=== PATIENT | female | born 1950 | race Caucasian/White ===

== ENCOUNTER 2022-06-17 14:08 | Inpatient (IN) | payer MEDICARE, OTHER, SELFPAY ==
[2022-06-17] VITALS (14 sets, daily range): BP systolic 107–149; BP diastolic 58–80; PULSE 65–77; RESP 12–22; TEMP 36.1–37.4; O2SAT 91–98; BMI 27.3; BMI 28.5
--- NOTE | 2022-06-17 14:25 | CRLHL7_ITS ---
For Patients: As a result of the Century Cures Act, medical imaging exams and procedure reports are released immediately into your electronic medical record. You may view this report before your referring provider. If you have questions, please contact your health care provider. INDICATION : Fall 8 feet from ladder. Chest trauma. TECHNIQUE : CT Scan of the chest abdomen pelvis. 66 cc Isovue IV COMPARISON : No comparison FINDINGS: Chest: Fractures of the right 7th 8th and 9th ribs. The fractures are present in more than 1 location in the involved ribs with anterior and more lateral components. Some pleural thickening and hematoma is present. Linear gas within the chest wall small volume as well as a small amount of linear gas right lower quadrant abdominal wall. Small amount of air anterior to the extreme inferior right middle lobe could be extrapleural air or a tiny pneumothorax. Atelectasis in both lower lobes. No suspicious adenopathy. The left lower lobe shows a localized emphysematous lesion which is subpleural. No adenopathy. Some minimally displaced linear cortical fractures of the posterior cortex of the sternum are present with some retrosternal thickening and hematoma. The aorta appears intact. No mediastinal hematoma or pericardial effusion. Abdomen: No liver laceration or mass. Tiny low dense lesion is present near the gallbladder. This is difficult to further characterize. No calcified gallstones. Spleen is intact. Adrenal glands and pancreas unremarkable. Kidneys are intact. Tiny low dense lesion probably a small cortical cyst medial right kidney image 137. No perinephric hematoma. GI tract is unremarkable. Small ventral hernia containing fat no bowel loops. No suspicious lymph node enlargement. Pelvis: No free fluid. The urinary bladder is unremarkable. Miscellaneous skeletal: Please see the acute skeletal abnormalities listed above. Chronic spondylolysis and spondylolisthesis L5-S1. Grade 2 anterolisthesis with bilateral pars defects. No vertebral body compressions. IMPRESSION: 1. Rib fractures with small localized segment of a flail chest (involving rib fractures of the same rib more than 1 site) involving the 7th 8th and 9th ribs. No gross chest wall deformity. 2. Small amount of posttraumatic chest wall hematoma and some linear gas right chest wall and abdominal wall. 3. Nondisplaced small cortical fractures of the posterior sternal body with minimal posterior retrosternal hematoma. No large mediastinal hematoma. 4. No signs of definite aortic injury. 5. No signs of definite liver laceration or other solid organ injury in the abdomen. 6. No other suspicious radiographic abnormalities. 7. The results were also communicated verbally to the emergency department physician at 3:50 p.m. Please note that all CT scans at this facility use dose modulation, iterative reconstruction, and/or weight-based dosing when appropriate to reduce radiation dose to as low as reasonably achievable. Dictated by Addy Mills MD @ 06/17/2022 3:59:03 PM (Electronically Signed)
--- NOTE | 2022-06-17 14:26 | ED_ITS ---
HPI - Fall General Chief Complaint: Fall/Minor Trauma Stated Complaint: Fell off ladder onto chest 8 ft Time Seen by Provider: 06/17/22 14:14 History of Present Illness HPI Narrative: This 71-year-old female comes in for evaluation of injuries from a fall that occurred just prior to arrival. She was up on a ladder when the ladder fell from under her. She fell reportedly about 8 ft and landed on the ladder. She has bruising on her left anterior lower ribs. She has significant pain at this location and radiating through to the right side of her back. She does not report any other injury. She did not hit her head or have loss of consciousness. After about 10 minutes she states she was able to get up and ambulate to the vehicle to come here. She is not on blood thinners. Related Data Allergies Allergy/AdvReac Type Severity Reaction Status Date / Time Opioids - Morphine Analogues AdvReac Severe Vomiting Verified 06/17/22 15:01 Review of Systems Status of ROS: Reports: 10 or more systems reviewed and unremarkable except as noted in History and below Narrative: Constitutional: No fevers, no weight gain or loss. Eyes: No discharge. No vision changes. HENT: No congestion, no sore throat, no ear pain. Cardiovascular: No palpitations. Respiratory: No wheezes, no cough. Pain worse when taking moderate her deeper breaths. Gastrointestinal: No vomiting, no diarrhea. Pain in the right upper quadrant. Genitourinary: No dysuria, no hematuria. Musculoskeletal: Normal range of motion. Skin: No rashes, no pruritis. Neurological: No dizziness, weakness, sensory change, speech change. Endo/Heme/Allergies: No bruising or bleeding. No polydipsia. Pysch: no suicidality, no anxiety, no insomnia. All other systems reviewed and are negative. PFSH PFS Social History Smoking Status: Never smoker Do you use any of these nicotine containing products: None How often do you have a drink containing alcohol: 2-4 times a month AUDIT-C Alcohol total score: 2 Non-prescribed substance use: denies use Exam Narrative: Exam Narrative: Primary Survey: Vital Signs are within normal limits. Airway: Open. Breathing: Easy but painful. Circulation: no obvious bleeding; normal capillary refill. Disability: GCS is 15. Normal pupillary response and motor movements. Secondary Survey: Exposure: Head: Normocephalic. No sign of injury. Neck: No midline tenderness. ROM intact. Chest: Right anterior lower chest has erythema and bruising with tenderness. Abdomen: Tenderness in the right upper quadrant. No rebound tenderness. Normal bowel sounds. Pelvis/Genitals: No tenderness to A/P and lateral stress. Extremities: Atraumatic. Back: No midline tenderness. Primary and Secondary surveys are completed. The patient's GCS is 15. Const: Vital Signs, click to edit/add: Vital Signs - 24 hr 06/17/22 14:18 06/17/22 15:17 06/17/22 15:32 Temperature 97.3 F L Pulse Rate 77 72 Pulse Rate [Pulse Oximeter] 67 Respiratory Rate 22 Blood Pressure 149/80 H Blood Pressure [Ri ght Upper Arm] 146/66 H Pulse Oximetry 95 93 97 Oxygen Delivery Me thod Room Air 06/17/22 15:34 Temperature Pulse Rate 70 Pulse Rate [Pulse Oximeter] Respiratory Rate Blood Pressure Blood Pressure [Ri ght Upper Arm] Pulse Oximetry 98 Oxygen Delivery Me thod Course Vital Signs Vital signs: Initial Vital Signs Temperature 97.3 F L 06/17/22 14:18 Temperature Source Temporal Artery Scan 06/17/22 14:18 Pulse Rate 67 06/17/22 14:18 Respiratory Rate 22 06/17/22 14:18 Blood Pressure 146/66 H 06/17/22 14:18 Blood Pressure Mean 92 06/17/22 14:18 Blood Pressure Position Left Lateral 06/17/22 14:18 Pulse Oximetry 95 06/17/22 14:18 Oxygen Delivery Method 06/17/22 14:18 Vital Signs Temperature 97.3 F L 06/17/22 14:18 Pulse Rate 67 06/17/22 14:18 Respiratory Rate 22 06/17/22 14:18 Blood Pressure 146/66 H 06/17/22 14:18 Pulse Oximetry 95 06/17/22 14:18 Oxygen Delivery Method 06/17/22 14:18 Temperature 97.3 F L 06/17/22 14:18 Pulse Rate 70 06/17/22 15:34 Respiratory Rate 22 06/17/22 14:18 Blood Pressure 149/80 H 06/17/22 15:32 Pulse Oximetry 98 06/17/22 15:34 Oxygen Delivery Method 06/17/22 14:18 MDM - Fall MDM Narrative Medical decision making narrative: This patient comes in in significant distress from a fall and associated rib injury. Yet she is maintaining sufficient oximetry and vital signs. She does not show any signs of shortness of breath. Given the mechanism of the fall she had an IV placed and CT scan was done with contrast to evaluate chest, abdomen, and pelvis. Her neck and head were nontender and not involved in this injury. I did not see the need to scan had a neck at this time. She was able to get up and ambulate after this fall but has significant discomfort in her right anterior lower ribs. CT imaging does show evidence of fractures of the 7th, 8th, and 9th ribs. There are more than 1 fractures on these particular ribs. There is some small amount of blood and air associated with this but no obvious pneumothorax. Additionally there is suspicion of a sternal fracture. She has some small amount of blood beneath the sternum also. The patient does report some pain in this area also. She received IV doses of Dilaudid and Zofran twice for pain relief. She tolerated this well but did have some significant nausea symptoms that were sufficiently treated with Zofran. I spoke with the hospitalist lithography contact worker, Dr. Muhammad, who agrees to her admission. Lab Data Labs: Lab Results 06/17/22 06/17/22 06/17/22 Range/Units 14:30 14:30 14:53 WBC 9.18 (4.50-11.00) K/uL RBC 4.56 (4.00-5.20) m/uL Hgb 11.7 L (12.0-16.0) gm/dL Hct 36.9 (33.0-51.0) % MCV 81 (80-100) fL MCH 26 (26-34) pg MCHC 32 (32-36) gm/dL RDW Coeff of Keira 17.5 H (11.5-15.5) % Plt Count 298 (140-440) K/uL Neut % (Auto) 56.3 (42.0-72.0) % Lymph % (Auto) 31.7 (20-44) % [place] % (Auto) 8.4 (0.0-11.0) % Eos % (Auto) 1.7 (0.0-7.0) % Baso % (Auto) 0.3 (0.0-3.0) % Neut # (Auto) 5.16 (1.7-7.0) K/uL Lymph # (Auto) 2.91 H (0.90-2.90) K/uL [place] # (Auto) 0.80 (0.00-0.90) K/UL Eos # (Auto) 0.16 (0.00-0.50) K/uL Baso # (Auto) 0.03 (0.00-0.30) K/uL Abs Immat Gran (auto) 0.15 (0.00-0.30) K/uL Sodium 139 (135-149) mmol/L Potassium 3.9 (3.6-5.1) mmol/L Chloride 102 (96-114) mmol/L Carbon Dioxide 31 (20-32) mmol/L BUN 12 (7-30) mg/dL Creatinine 0.9 (0.5-1.5) mg/dL Estimated Creat Clear 38.14 Estimated GFR 69 ml/min Glucose 118 H (60-115) mg/dL Calcium 9.0 (8.4-10.6) mg/dL POC Creatinine 0.9 (0.6-1.3) mg/dl Imaging Data CT Chest Abd Pelvis: Radiologist's impression: 1. Rib fractures with small localized segment of a flail chest (involving rib fractures of the same rib more than 1 site) involving the 7th 8th and 9th ribs. No gross chest wall deformity. 2. Small amount of posttraumatic chest wall hematoma and some linear gas right chest wall and abdominal wall. 3. Nondisplaced small cortical fractures of the posterior sternal body with minimal posterior retrosternal hematoma. No large mediastinal hematoma. 4. No signs of definite aortic injury. 5. No signs of definite liver laceration or other solid organ injury in the abdomen. 6. No other suspicious radiographic abnormalities. Discharge Plan Discharge Clinical Impression: Multiple fractures of ribs, Sternal fracture Patient Disposition: Admitted As Inpatient Condition: Unchanged Follow Up/Referrals: Arleen Joya DO [Primary Care Provider] -
[2022-06-17] MEDS: ONDANSETRON 2 MG/ML inj 4 MG IVP ×2 (14:32→16:01)
[2022-06-17] MEDS: HYDROmorphone 0.5 mg/0.5 ml inj IVP ×2 (14:33→15:46)
[2022-06-17 14:44] LABS: Basophils Absolute Auto 0.03 K/uL (0.00-0.30); Basophils Percent Auto 0.3 % (0.0-3.0); Eosinophils Absolute Auto 0.16 K/uL (0.00-0.50); Eosinophils Percent Auto 1.7 % (0.0-7.0); Hematocrit 36.9 % (33.0-51.0); Hemoglobin* 11.7 gm/dL (12.0-16.0); Immature Granulocytes Abs Auto 0.15 K/uL (0.00-0.30); Lymphocytes Absolute Auto 2.91 K/uL (0.90-2.90); Lymphocytes Percent Auto 31.7 % (20-44); Mean Corpuscular HGB Conc 32 gm/dL (32-36); Mean Corpuscular Hemoglobin 26 pg (26-34); Mean Corpuscular Volume 81 fL (80-100); Monocytes Percent Auto 8.4 % (0.0-11.0); Neutrophils Absolute Auto 5.16 K/uL (1.7-7.0); Neutrophils Percent Auto 56.3 % (42.0-72.0); Platelet Count* 298 K/uL (140-440); RDW Coefficient of Variation % 17.5 % (11.5-15.5); Red Blood Count 4.56 m/uL (4.00-5.20); White Blood Count* 9.18 K/uL (4.50-11.00)
[2022-06-17 14:51] LABS: Slide Review Reflex No
[2022-06-17 14:57] LABS: Chloride* 102 mmol/L (96-114); Potassium* 3.9 mmol/L (3.6-5.1); Sodium* 139 mmol/L (135-149)
[2022-06-17 15:00] LABS: Blood Urea Nitrogen* 12 mg/dL (7-30); Carbon Dioxide* 31 mmol/L (20-32); Creatinine* 0.9 mg/dL (0.5-1.5); Est. Creatinine Clearance* 38.14; Estimated Glomerular Filt Rate 69 ml/min; Glucose* 118 mg/dL (60-115)
[2022-06-17 15:03] LABS: Creatinine, Point-of-Care* 0.9 mg/dl (0.6-1.3)
--- NOTE | 2022-06-17 16:20 | P.IMHP_ITS ---
Hospitalist- H&P: HPI History of Present Illness Date Seen: 06/17/22 Chief complaint: Fell off ladder onto chest 8 ft Narrative: ADMISSION HISTORY AND PHYSICAL - HOSPITALIST Chief Complaint: I fell hurting my right chest HPI: 71 y/o with no significant medical history presents after a fall. She was on a ladder washing the side of her house in preparation for it to be painted. Her was holding the ladder until he wasn't -- the ladder slipped to the right and she came crashing down on top of ladder onto cement. The fall was estimated at 6-8 feet. She was able to yell out and slowly stand up. She reports no head injury or loss of consciousness. The fall was witnessed by her . Neighbors came over and assisted. She was able to ambulate to her car and come in by POV. She is complaining of right chest wall pain. No headache, bleeding from the mouth or ears, no neck pain. No leg pain. No arm pain. In the ED a trauma activation was initiated. Chest abdomen pelvic CT revealed several rib fractures on the right with suspicion of a minor pneuo/hemothorax. She also has a cracked sternum. She was given IV opioids and anti emetics. Her labs were notable for a drop in her hemoglobin from baseline. 13.4 last fall, 11.7 tonight. LFTs were still pending at admission. She was not hypoxic. She was alert and coherent. He was feeling nauseated and having emesis from her opioids. I did ask for an EKG, C-spine evaluation by CT, LFTs, 3D recon of her thoracic and lumbar spine. This was in consultation with Dr. Gilbert, general surgeon, by phone. EKG was unremarkable. PAST MEDICAL HISTORY: Obstructive sleep apnea Basal cell Hypertension Hyperparathyroidism Osteopenia Cat allergy MEDICATIONS: All OTC-biotin calcium, fish, Flonase, multivitamin, vitamin-E ALLERGIES: Environmental: Animal dander, count elope, dust mite, mold, peanuts, pollen Codeine Hydrocodone Lisinopril Morphine The medication allergies sound more like intolerances SURGICAL HISTORY: Uterine ablation Eye surgery Hand ligament reconstruction Hysterectomy with oophorectomy Parathyroidectomy FAMILY HISTORY: Reviewed in EMR HABITS: Lifetime nonsmoker. No vaping history Wine or beer occasionally SOCIAL HISTORY: , lives with her , Prem, who is 10 years older than she is Dr. Joya - is her PCP INVESTIGATIONS: LABS/MICRO/ECG/IMAGING CBC reflects a normal white blood cell count of 9.18, hemoglobin 11.7, platelets 298 Last hemoglobin was noted to be 13.4 in August of 2021 BMP is unremarkable. Normal renal function. Glucose 118. Chest abdomen pelvic CT 1. Rib fractures with small localized segment of a flail chest (involving rib fractures of the same rib more than 1 site) involving the 7th 8th and 9th ribs. No gross chest wall deformity. 2. Small amount of posttraumatic chest wall hematoma and some linear gas right chest wall and abdominal wall. 3. Nondisplaced small cortical fractures of the posterior sternal body with minimal posterior retrosternal hematoma. No large mediastinal hematoma. 4. No signs of definite aortic injury. 5. No signs of definite liver laceration or other solid organ injury in the abdomen. 6. No other suspicious radiographic abnormalities. Afebrile Blood pressure 132/69 Pulse rate 60s to 70s Respiratory rate 22 Pulse ox 92-94% on room air 63.5 kilos REVIEW OF SYSTEMS: 12-point ROS completed with patient and negative unless otherwise stated in HPI or below. PHYSICAL EXAM: CODE STATUS: FULL CODE CONSTITUTIONAL: Lying on her left side, emesis bag being held secondary to nausea vomiting related to opioid therapy, cooperative. VITAL SIGNS: see record. HEENT: Normocephalic, atraumatic. PERRL, EOMI, conjunctivae pink, no scleral icterus. Ears and nose externally normal. Pharynx normal. NECK: No JVD. No carotid bruit, no thyromegaly, no adenopathy. CHEST: Abrasion noted along the lateral right chest wall. No abnormal chest movements with inspiration or expiration. No wheezing. HEART: No definitive murmur MUSCULOSKELETAL: Tender across the lateral right chest wall, as expected. I specifically palpated her orbits, her mandible, her skull, C-spine. I inspected her right ear and behind her right ear. I examined her right arm and alley worker strength which was normal. I asked her to lift her right leg and bend her knee to chest which she was generally able to follow my commands. This significant pain in her right chest was limiting. NEURO: Cranial nerves intact. Grossly intact. No asymmetric findings. SKIN: Abrasions on the did right lateral chest wall and right groin PSYCHIATRIC: Euthymic. ADMIT DVT: SCDs GI: PO intake Time spent: 70 minutes examining patient, conferring with family and patient, care staff, developing care plan [facility] Medical History (Updated 06/17/22 @ 18:13 by Latasha Muhammad MD) Basal cell carcinoma Hyperparathyroidism Hypertension JOSE GUADALUPE (obstructive sleep apnea) Surgical History (Updated 06/17/22 @ 18:13 by Latasha Muhammad MD) H/O eye surgery H/O hand surgery History of endometrial ablation History of parathyroidectomy S/P DAVID-BSO (total abdominal hysterectomy and bilateral salpingo-oophorectomy) Social History Smoking Status: Never smoker Do you use any of these nicotine containing products: None How often do you have a drink containing alcohol: 2-4 times a month AUDIT-C Alcohol total score: 2 Non-prescribed substance use: denies use Meds Home Medications and Allergies Allergies Allergy/AdvReac Type Severity Reaction Status Date / Time Opioids - Morphine Analogues AdvReac Severe Vomiting Verified 06/17/22 15:01 Exam Const: Vital Signs, click to edit/add: Vital Signs - 24 hr 06/17/22 14:18 06/17/22 15:17 06/17/22 15:32 Temperature 97.3 F L Pulse Rate 77 72 Pulse Rate [Pulse Oximeter] 67 Respiratory Rate 22 Blood Pressure 149/80 H Blood Pressure [Ri ght Upper Arm] 146/66 H Pulse Oximetry 95 93 97 Oxygen Delivery Me thod Room Air 06/17/22 15:34 Temperature Pulse Rate 70 Pulse Rate [Pulse Oximeter] Respiratory Rate Blood Pressure Blood Pressure [Ri ght Upper Arm] Pulse Oximetry 98 Oxygen Delivery Me thod Hospitalist - H&P: Result Labs Labs: Short CBC 06/17/22 Range/Units 14:30 WBC 9.18 (4.50-11.00) K/uL Hgb 11.7 L (12.0-16.0) gm/dL Hct 36.9 (33.0-51.0) % Plt Count 298 (140-440) K/uL BMP 06/17/22 14:30 Sodium 139 Potassium 3.9 Chloride 102 Carbon Dioxide 31 BUN 12 Creatinine 0.9 Glucose 118 H Calcium 9.0 Assessment and Plan Assessment and plan (1) Fall from ladder: Status: Acute Assessment and Plan: Admit to CCU level care for at least the 1st 12-24 hours. This is blunt chest trauma with concern of extension of her bleeding/pneumo. Monitor on telemetry and continuous pulse oximetry. The impact and significance of her trauma is not to be under stated. She has a small flail segment of the chest and a drop in her hemoglobin with small amounts of pneumothorax and hemothorax. This obligates for observation at this point without intervention. will check hemoglobin and CXR later this evening. EKG was reassuring. Telemetry will be monitored for cardiac arrhythmia secondary to blunt chest trauma. UA for hematuria screen. Control her pain. RT to assist with pulmonary hygiene. (2) Flail chest, initial encounter for closed fracture: Status: Acute Assessment and Plan: As above (3) Multiple fractures of ribs: Status: Acute Assessment and Plan: As above, follow-up chest x-ray in the morning (4) Sternal fracture: Status: Acute Assessment and Plan: As above Plan I discussed this case with our general surgeon. He went to the ED and discuss this case with both ER docs. We will admit to our CCU with close observation. Her injuries at this point do not require intervention other than pain control and pulmonary hygiene. However things may change in the next 12-24 hours and may necessitate transfer to trauma center. Morning labs ordered.
--- NOTE | 2022-06-17 16:50 | CRLHL7_ITS ---
For Patients: As a result of the Century Cures Act, medical imaging exams and procedure reports are released immediately into your electronic medical record. You may view this report before your referring provider. If you have questions, please contact your health care provider. Indication: Fall, rib and sternal fractures Technique: Contiguous axial images from the skull base through the superior mediastinum were obtained with coronal and sagittal reformations. No IV contrast was administered. Comparison: None available Findings: No definite acute appearing cervical spine fracture. No listhesis. Degenerative changes in the mid cervical spine. On soft tissue windows, there is no definite epidural hematoma. Impression: No CT evidence of cervical spine fracture or static subluxation. Please note that all CT scans at this facility use dose modulation, iterative reconstruction, and/or weight-based dosing when appropriate to reduce radiation dose to as low as reasonably achievable. Dictated by Kelby Marshall MD @ 06/17/2022 5:56:25 PM (Electronically Signed)
[2022-06-17] MEDS: LORazepam 2 MG/ML inj 0.25 MG IVP (17:09)
--- NOTE | 2022-06-17 17:44 | CRLHL7_ITS ---
For Patients: As a result of the Century Cures Act, medical imaging exams and procedure reports are released immediately into your electronic medical record. You may view this report before your referring provider. If you have questions, please contact your health care provider. INDICATION: Fall. COMPARISON: None. TECHNIQUE: Trauma CT thoracic spine reformats. FINDINGS: Minimal anterolisthesis of T2 on T3 likely secondary to adjacent facet arthropathy. Otherwise normal vertebral body alignment. The facet joints articulate normally. The vertebral body heights are preserved. The posterior elements appear intact. There is mild multilevel disc space height loss and anterior endplate osteophytosis. Partially visualized rib and sternal fractures better evaluated on trauma CT. IMPRESSION: No acute osseous abnormality of the thoracic spine. Please note that all CT scans at this facility use dose modulation, iterative reconstruction, and/or weight-based dosing when appropriate to reduce radiation dose to as low as reasonably achievable. Dictated by Israel Finch MD @ 06/17/2022 6:25:49 PM (Electronically Signed)
--- NOTE | 2022-06-17 17:44 | CRLHL7_ITS ---
For Patients: As a result of the Century Cures Act, medical imaging exams and procedure reports are released immediately into your electronic medical record. You may view this report before your referring provider. If you have questions, please contact your health care provider. On S1. INDICATION: Fall. COMPARISON: None. TECHNIQUE: Trauma bone reformats of the lumbar spine. FINDINGS: Moderate anterolisthesis of L5 on S1 secondary to chronic bilateral pars defects. No evidence of acute vertebral body malalignment. The facet joints otherwise articulate normally. The vertebral body heights are preserved. There is multilevel disc space height loss, most severe at L4-L5 and L5-S1. The posterior elements appear intact. IMPRESSION: No acute osseous abnormality. Chronic bilateral L5 pars defects with associated grade 2 anterolisthesis of L5 on S1. Please note that all CT scans at this facility use dose modulation, iterative reconstruction, and/or weight-based dosing when appropriate to reduce radiation dose to as low as reasonably achievable. Dictated by Israel Finch MD @ 06/17/2022 6:21:15 PM (Electronically Signed)
[2022-06-17 17:55] LABS: SARS PCR* Negative SARS-CoV-2 (Negative)
[2022-06-17 18:02] LABS: Albumin* 4.3 g/dL (3.3-5.0)
[2022-06-17 18:05] LABS: Aspartate Amino Transferase* 82 U/L (12-35); Bilirubin Direct* 0.2 mg/dL (0.0-0.5); Bilirubin Total* 0.5 mg/dL (0.1-1.5); Total Protein* 7.5 g/dL (6.0-8.3)
[2022-06-17 18:06] LABS: Alanine Aminotransferase* 48 U/L (4-35); Alkaline Phosphatase* 108 U/L (40-150)
[2022-06-17] MEDS: KETOROLAC 30 MG/ML inj IVP (18:52)
[2022-06-17] MEDS: PROCHLORPERAZINE 5 MG/ML VIAL IV (19:08)
[2022-06-17] MEDS: GABAPENTIN 300 MG CAPSULE PO (20:41)
[2022-06-17] MEDS: ACETAMINOPHEN 325 MG TABLET PO (20:41)
[2022-06-17] MEDS: SODIUM CHLORIDE 0.9 % (FLUSH) 10 ML SYRINGE 5 ML IVF (20:42)
[2022-06-17 21:56] LABS: Hemoglobin* 10.8 gm/dL (12.0-16.0)
[2022-06-17] MEDS: 0.9 % SODIUM CHLORIDE 500 ML 500 ML IV (21:57)
[2022-06-17] MEDS: 0.9 % SODIUM CHLORIDE 1000 ml 1,000 ML 75 ML IV (21:57)
--- NOTE | 2022-06-17 22:00 | CRLHL7_ITS ---
For Patients: As a result of the Century Cures Act, medical imaging exams and procedure reports are released immediately into your electronic medical record. You may view this report before your referring provider. If you have questions, please contact your health care provider. Indication: Follow up trauma Comparison: CT chest, abdomen and pelvis dated June 17, 2022 Technique: Single AP view chest Findings: There is hyperinflation and chronic interstitial change. Previously seen small pneumothoraces are not well appreciated with minimal left basilar lucency appreciated. No evidence of significant air accumulation or midline shift. The cardiomediastinal silhouette is within normal limits. Previously seen rib fractures on the right are not well appreciated. Impression: Previously seen small pneumothoraces on comparison CT are not well appreciated on current exam with minimal left basilar lucency. Otherwise, mild pulmonary edema without evidence of midline shift. Dictated by Tima Charles MD @ 06/18/2022 6:01:41 AM (Electronically Signed)
[2022-06-17 22:37] LABS: C Reactive Protein* < 0.5 mg/dL (0.5-1.0)
[2022-06-17] MEDS: PANTOPRAZOLE SODIUM 40 MG INJ IVP (22:48)
[2022-06-17] MEDS: hydrOXYzine pamoate 25 MG CAPSULE PO (22:48)
[2022-06-18] VITALS: BP 129/67; PULSE 71; RESP 12; TEMP 36.8; O2SAT 96
[2022-06-18 00:55] VITALS: PULSE 60
[2022-06-18] MEDS: ACETAMINOPHEN 325 MG TABLET PO ×3 (02:46→15:33)
[2022-06-18 03:05] VITALS: BP 135/69; PULSE 66; RESP 12; TEMP 36.7; O2SAT 92
--- NOTE | 2022-06-18 04:30 | PC.NURSE ---
Addendum entered by Bryce Barker RN 06/18/22 06:13: Placed back on O2 at 0.5LNC for O2 sats occ dipping to 89%. Last rosa m PCXR resulted. Addendum entered by Bryce Barker RN 06/18/22 05:47: Up to BSC this AM tolerated fairly well. Voided about 200mls. Bladder scanned for 393mls PVR. Original Note: Temp 99.5 gave Tylenol and used IS to 750 down to 98.2 at 0300. O2 sats borderline at 1930 applied 1LNC tapered to 0.5LNC and then to home CPAP at 0300 sats 92%. Lungs diminished and seems to have symmetrical chest rise w/inspiration. Pt was having some moderate nausea, had pt do sips/ships until resolved somewhat and then gave Tylenol and Neurontin. Vistaril given about 2300 and pt slept well after that. Ice pack to lower right chest w/small light bruise. Pain is mostly when moving and was resolved while at rest by 0300 and Tylenol given. Had pt use a pillow to splint when moving. Tele NSR w/occ early beats and some isolated runs of sinus tach noted after the analysis was run and 1 example posted to chart. Reported last void at 1330 or so and then when pt positioned for PCXR and just prior to 2200 blood draw bladder scan done for about 258mls. Dr. Muhammad gave order for NS bolus and IVF which was started after the 2200 hemoglobin draw. Was sleeping really hard at 0300 and still did not need to void. Reports hands have chronic tingling.
[2022-06-18 06:58] LABS: HCO3 VBG 28 mmol/L (21-28); PCO2 VBG 52 mmHG (40-50); PO2 VBG 25.3 mmHG (25-47); pH VBG 7.344 (7.32-7.43)
[2022-06-18 07:00] VITALS: PULSE 57
[2022-06-18 07:00] LABS: Lactate* 0.9 mmol/L (0.5-1.9)
--- NOTE | 2022-06-18 07:00 | CRLHL7_ITS ---
For Patients: As a result of the Century Cures Act, medical imaging exams and procedure reports are released immediately into your electronic medical record. You may view this report before your referring provider. If you have questions, please contact your health care provider. Indication: Post trauma Comparison: Single view chest June 17, 2022 and chest abdomen and pelvis CT June 17, 2022 Technique: Single AP view chest Findings: There is hyperinflation and chronic interstitial change. There is persistent bibasilar atelectasis and parenchymal scar. Previously noted pneumothoraces on comparison CT chest abdomen and pelvis are not well appreciated without significant accumulation. The cardiac silhouette is stable. Previously seen right-sided rib deformities are again noted, better appreciated on CT. Impression: Persistent basilar atelectasis and mild interstitial prominence. No evidence of significant accumulation of previously seen bilateral trace pneumothoraces. Dictated by Tima Charles MD @ 06/18/2022 7:17:25 AM (Electronically Signed)
[2022-06-18 07:04] LABS: Hematocrit 31.2 % (33.0-51.0); Hemoglobin* 9.8 gm/dL (12.0-16.0); Mean Corpuscular HGB Conc 31 gm/dL (32-36); Mean Corpuscular Hemoglobin 26 pg (26-34); Mean Corpuscular Volume 82 fL (80-100); Platelet Count* 204 K/uL (140-440); Red Blood Count 3.82 m/uL (4.00-5.20)
[2022-06-18 07:19] LABS: Slide Review Reflex No
[2022-06-18 07:33] LABS: Albumin* 3.4 g/dL (3.3-5.0); Chloride* 104 mmol/L (96-114)
[2022-06-18 07:34] LABS: Potassium* 3.9 mmol/L (3.6-5.1); Sodium* 137 mmol/L (135-149)
[2022-06-18 07:36] LABS: Bilirubin Total* 0.7 mg/dL (0.1-1.5); Creatinine* 0.9 mg/dL (0.5-1.5); Est. Creatinine Clearance* 38.14; Estimated Glomerular Filt Rate 69 ml/min
[2022-06-18 07:37] LABS: Alanine Aminotransferase* 37 U/L (4-35); Alkaline Phosphatase* 79 U/L (40-150); Aspartate Amino Transferase* 59 U/L (12-35); Blood Urea Nitrogen* 13 mg/dL (7-30); Calcium* 7.9 mg/dL (8.4-10.6); Carbon Dioxide* 29 mmol/L (20-32); Glucose* 102 mg/dL (60-115); Total Protein* 6.1 g/dL (6.0-8.3)
[2022-06-18 07:40] LABS: C Reactive Protein* 2.2 mg/dL (0.5-1.0)
--- NOTE | 2022-06-18 07:49 | PM.GSCN ---
History of Present Illness Consult details Date Seen: 06/18/22 Consult date: 06/18/22 Narrative: The patient is a 71-year-old female who yesterday was washing her hose in preparation for painting when she fell 6-8 feet off a ladder. She denies being dizzy or having syncope, rather her was not holding the ladder at the time of the fall. The fall was witnessed. She did not lose consciousness. She landed on her right chest on the ladder itself. Right after she fell she was able to sit up and then it took her approximately 10 minutes to be able to stand secondary to the pain. Overnight she had nausea and vomiting, thought to be secondary to the narcotic pain medication but today her pain is better controlled. Imaging revealed sternal fracture with small retrosternal hematoma as well as 3 rib fractures with multiple breaks concerning for flail chest and very small occult pneumothorax. She denies any shortness of breath. Denies any neck pain, dizziness, back pain, abdominal pain, joint pain. Review of Systems Status of ROS: Reports: 10 or more systems reviewed and unremarkable except as noted in History and below [facility] Medical History (Updated 06/18/22 @ 08:32 by Francie Gilbert MD) Basal cell carcinoma Hyperparathyroidism Hypertension JOSE GUADALUPE (obstructive sleep apnea) Surgical History (Updated 06/17/22 @ 18:13 by Latasha Muhammad MD) H/O eye surgery H/O hand surgery History of endometrial ablation History of parathyroidectomy S/P DAVID-BSO (total abdominal hysterectomy and bilateral salpingo-oophorectomy) Family History (Updated 06/18/22 @ 08:27 by Francie Gilbert MD) Father Coagulation disorder Paternal Grandfather Coagulation disorder Social History (Updated 06/18/22 @ 08:25 by Francie Gilbert MD) Narrative: 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 Highest level of school completed/degree received: Master's degree Smoking Status: Never smoker Do you use any of these nicotine containing products: None Second hand tobacco smoke exposure: Yes How often do you have a drink containing alcohol: 2-4 times a month Alcohol type: beer and wine AUDIT-C Alcohol total score: 2 Non-prescribed substance use: denies use Caffeine: Yes (2 cups) service: No Meds Home Medications and Allergies Home Medications Medication Instructions Recorded Confirmed Type fluticasone propionate 50 2 spray intranasal DAILY 06/18/22 06/18/22 History mcg/actuation nasal spray,suspension Allergies Allergy/AdvReac Type Severity Reaction Status Date / Time Opioids - Morphine Analogues AdvReac Severe Vomiting Verified 06/17/22 15:01 codeine AdvReac Intermediate Gastrointestinal Verified 06/17/22 19:09 Upset Bupivicaine Allergy Intermediate Uncoded 06/17/22 19:09 Animal Dander Allergy Unknown Uncoded 06/17/22 19:09 Dust Allergy Unknown Uncoded 06/17/22 19:09 Molds and Smuts Allergy Unknown Uncoded 06/17/22 19:09 Pollens Allergy Unknown Uncoded 06/17/22 19:09 Hydrocodone AdvReac Intermediate Gastrointestinal Uncoded 06/17/22 19:09 Upset Methylprednisolone AdvReac Intermediate Uncoded 06/17/22 19:09 Exam Narrative: Exam Narrative: General appearance: Alert, cooperative, and in no distress Eyes: PERRLA, eye lids clear, and sclera white HENT Head: Normocephalic Ears: External ears normal Neck: No midline tenderness. Normal range of motion. Pulmonary: Clear bilaterally Chest: Ecchymosis on right chest. No flail segment noted with inspiration. Cardiovascular Heart: Regular rate and rhythm Extremities: warm and well perfused Gastrointestinal Abdominal: Soft, nontender, nondistended Musculoskeletal: Extremities: Upper: Both upper extremities have normal joint range of motion and intact strength. Lower: Both lower extremities have normal joint range of motion and intact strength. Small scrape on right knee. Skin: Normal skin color, texture, and turgor. No rashes or lesions. Neurologic: No focal deficits Psychiatric: Alert, oriented, cooperative, normal affect. Const: Vital Signs, click to edit/add: Vital Signs - 24 hr 06/17/22 14:18 06/17/22 15:17 06/17/22 15:32 Temperature 97.3 F L Pulse Rate 77 72 Pulse Rate [Pulse Oximeter] 67 Pulse Rate [Right Radial] Respiratory Rate 22 Blood Pressure 149/80 H Blood Pressure [Le ft Arm] Blood Pressure [Ri ght Arm] Blood Pressure [Ri ght Upper Arm] 146/66 H Pulse Oximetry 95 93 97 Oxygen Delivery Me thod Room Air Oxygen Flow Rate 06/17/22 15:34 06/17/22 16:02 06/17/22 16:03 Temperature Pulse Rate 70 73 71 Pulse Rate [Pulse Oximeter] Pulse Rate [Right Radial] Respiratory Rate Blood Pressure 140/75 H Blood Pressure [Le ft Arm] Blood Pressure [Ri ght Arm] Blood Pressure [Ri ght Upper Arm] Pulse Oximetry 98 94 94 Oxygen Delivery Me thod Oxygen Flow Rate 06/17/22 16:32 06/17/22 16:33 06/17/22 18:02 Temperature 97.0 F L Pulse Rate 68 65 Pulse Rate [Pulse Oximeter] Pulse Rate [Right Radial] 72 Respiratory Rate 18 Blood Pressure 132/69 Blood Pressure [Le ft Arm] Blood Pressure [Ri ght Arm] 120/62 Blood Pressure [Ri ght Upper Arm] Pulse Oximetry 95 92 91 Oxygen Delivery Me thod Room Air Oxygen Flow Rate 06/17/22 18:04 06/17/22 18:11 06/17/22 19:45 Temperature 97.0 F L 99.3 F Pulse Rate Pulse Rate [Pulse Oximeter] Pulse Rate [Right Radial] 72 70 Respiratory Rate 18 12 Blood Pressure Blood Pressure [Le ft Arm] Blood Pressure [Ri ght Arm] 120/62 107/58 L Blood Pressure [Ri ght Upper Arm] Pulse Oximetry 91 91 Oxygen Delivery Me thod Room Air Room Air Room Air Oxygen Flow Rate 06/17/22 19:46 06/17/22 21:00 06/17/22 21:42 Temperature 98.1 F Pulse Rate 65 Pulse Rate [Pulse Oximeter] Pulse Rate [Right Radial] 67 Respiratory Rate 12 Blood Pressure Blood Pressure [Le ft Arm] 119/68 Blood Pressure [Ri ght Arm] Blood Pressure [Ri ght Upper Arm] Pulse Oximetry 96 93 Oxygen Delivery Me thod Nasal Cannula Nasal Cannula Oxygen Flow Rate 1 0.5 06/18/22 00:00 06/18/22 00:55 06/18/22 03:05 Temperature 98.2 F 98.1 F Pulse Rate 60 Pulse Rate [Pulse Oximeter] Pulse Rate [Right Radial] 71 66 Respiratory Rate 12 12 Blood Pressure Blood Pressure [Le ft Arm] 129/67 135/69 Blood Pressure [Ri ght Arm] Blood Pressure [Ri ght Upper Arm] Pulse Oximetry 96 92 Oxygen Delivery Me thod Nasal Cannula Room Air Oxygen Flow Rate 0.5 0.5 Results Labs Labs: Abnormal lab results 06/17/22 06/17/22 06/17/22 Range/Units 14:30 14:30 16:51 RBC (4.00-5.20) m/uL Hgb 11.7 L (12.0-16.0) gm/dL Hct (33.0-51.0) % MCHC (32-36) gm/dL RDW Coeff of Keira 17.5 H (11.5-15.5) % Lymph # (Auto) 2.91 H (0.90-2.90) K/uL VBG pCO2 (40-50) mmHG Glucose 118 H (60-115) mg/dL Calcium (8.4-10.6) mg/dL AST 82 H (12-35) U/L ALT 48 H (4-35) U/L C-Reactive Protein < 0.5 L (0.5-1.0) mg/dL 06/17/22 06/17/22 06/18/22 Range/Units 18:16 21:51 06:27 RBC 3.82 L (4.00-5.20) m/uL Hgb 11.0 L 10.8 L 9.8 L (12.0-16.0) gm/dL Hct 31.2 L (33.0-51.0) % MCHC 31 L (32-36) gm/dL RDW Coeff of Keira (11.5-15.5) % Lymph # (Auto) (0.90-2.90) K/uL VBG pCO2 (40-50) mmHG Glucose (60-115) mg/dL Calcium (8.4-10.6) mg/dL AST (12-35) U/L ALT (4-35) U/L C-Reactive Protein (0.5-1.0) mg/dL 06/18/22 06/18/22 Range/Units 06:27 06:27 RBC (4.00-5.20) m/uL Hgb (12.0-16.0) gm/dL Hct (33.0-51.0) % MCHC (32-36) gm/dL RDW Coeff of Keira (11.5-15.5) % Lymph # (Auto) (0.90-2.90) K/uL VBG pCO2 52 H (40-50) mmHG Glucose (60-115) mg/dL Calcium 7.9 L (8.4-10.6) mg/dL AST 59 H (12-35) U/L ALT 37 H (4-35) U/L C-Reactive Protein 2.2 H (0.5-1.0) mg/dL Diabetes panel 06/17/22 06/17/22 06/18/22 Range/Units 14:30 16:51 06:27 Sodium 139 137 (135-149) mmol/L Potassium 3.9 3.9 (3.6-5.1) mmol/L Chloride 102 104 (96-114) mmol/L Carbon Dioxide 31 29 (20-32) mmol/L BUN 12 13 (7-30) mg/dL Creatinine 0.9 0.9 (0.5-1.5) mg/dL Glucose 118 H 102 (60-115) mg/dL Calcium 9.0 7.9 L (8.4-10.6) mg/dL AST 82 H 59 H (12-35) U/L ALT 48 H 37 H (4-35) U/L Alkaline Phosphatase 108 79 (40-150) U/L Total Protein 7.5 6.1 (6.0-8.3) g/dL Albumin 4.3 3.4 (3.3-5.0) g/dL Calcium panel 06/17/22 06/17/22 06/18/22 Range/Units 14:30 16:51 06:27 Calcium 9.0 7.9 L (8.4-10.6) mg/dL Albumin 4.3 3.4 (3.3-5.0) g/dL Pituitary panel 06/17/22 06/18/22 Range/Units 14:30 06:27 Sodium 139 137 (135-149) mmol/L Potassium 3.9 3.9 (3.6-5.1) mmol/L Chloride 102 104 (96-114) mmol/L Carbon Dioxide 31 29 (20-32) mmol/L BUN 12 13 (7-30) mg/dL Creatinine 0.9 0.9 (0.5-1.5) mg/dL Glucose 118 H 102 (60-115) mg/dL Calcium 9.0 7.9 L (8.4-10.6) mg/dL Adrenal panel 0806/17/22 06/18/22 Range/Units 14:30 16:51 06:27 Sodium 139 137 (135-149) mmol/L Potassium 3.9 3.9 (3.6-5.1) mmol/L Chloride 102 104 (96-114) mmol/L Carbon Dioxide 31 29 (20-32) mmol/L BUN 12 13 (7-30) mg/dL Creatinine 0.9 0.9 (0.5-1.5) mg/dL Glucose 118 H 102 (60-115) mg/dL Calcium 9.0 7.9 L (8.4-10.6) mg/dL Total Bilirubin 0.5 0.7 (0.1-1.5) mg/dL AST 82 H 59 H (12-35) U/L ALT 48 H 37 H (4-35) U/L Alkaline Phosphatase 108 79 (40-150) U/L Total Protein 7.5 6.1 (6.0-8.3) g/dL Albumin 4.3 3.4 (3.3-5.0) g/dL All other labs normal. Imaging Chest x-ray: report reviewed and image reviewed (Diagnostic Imaging Report Patient: Fauzia Howard BMR#: [id number]: [id number]:[id number]: [id number] Date: 06/18/22Attending Dr: Latasha Muhammad M.D. Ordering Physician: Latasha Muhammad M.D. Date of Service: 06/18/22 Procedure(s): XR chest 1V portable Accession Numbe) Abdomen CT scan report/results: report reviewed and image reviewed (Indication: Fall, rib and sternal fractures Technique: Contiguous axial images from the skull base through the superior mediastinum were obtained with coronal and sagittal reformations. No IV contrast was administered. Comparison: None available Findings: No definite acute appearing cervical ) EKG: image reviewed (EKG shows NSR but possible age indeterminate septal infarct) Additional studies: TECHNIQUE: Trauma CT thoracic spine reformats. FINDINGS: Minimal anterolisthesis of T2 on T3 likely secondary to adjacent facet arthropathy. Otherwise normal vertebral body alignment. The facet joints articulate normally. The vertebral body heights are preserved. The posterior elements appear intact. There is mild multilevel disc space height loss and anterior endplate osteophytosis. Partially visualized rib and sternal fractures better evaluated on trauma CT. IMPRESSION: No acute osseous abnormality of the thoracic spine. Please note that all CT scans at this facility use dose modulation, iterative reconstruction, and/or weight-based dosing when appropriate to reduce radiation dose to as low as reasonably achievable. Dictated by Israel Finch MD @ 06/17/2022 6:25:49 PM (Electronically Signed) On S1. INDICATION: Fall. COMPARISON: None. TECHNIQUE: Trauma bone reformats of the lumbar spine. FINDINGS: Moderate anterolisthesis of L5 on S1 secondary to chronic bilateral pars defects. No evidence of acute vertebral body malalignment. The facet joints otherwise articulate normally. The vertebral body heights are preserved. There is multilevel disc space height loss, most severe at L4-L5 and L5-S1. The posterior elements appear intact. IMPRESSION: No acute osseous abnormality. Chronic bilateral L5 pars defects with associated grade 2 anterolisthesis of L5 on S1. Please note that all CT scans at this facility use dose modulation, iterative reconstruction, and/or weight-based dosing when appropriate to reduce radiation dose to as low as reasonably achievable. Dictated by Israel Finch MD @ 06/17/2022 6:21:15 PM (Electronically Signed) Indication: Fall, rib and sternal fractures Technique: Contiguous axial images from the skull base through the superior mediastinum were obtained with coronal and sagittal reformations. No IV contrast was administered. Comparison: None available Findings: No definite acute appearing cervical spine fracture. No listhesis. Degenerative changes in the mid cervical spine. On soft tissue windows, there is no definite epidural hematoma. Impression: No CT evidence of cervical spine fracture or static subluxation. Please note that all CT scans at this facility use dose modulation, iterative reconstruction, and/or weight-based dosing when appropriate to reduce radiation dose to as low as reasonably achievable. Dictated by Kelby Marshall MD @ 06/17/2022 5:56:25 PM (Electronically Signed) Assessment and Plan Assessment and plan (1) Flail chest, initial encounter for closed fracture: Status: Acute (2) Fall from ladder: Status: Acute (3) Multiple fractures of ribs: Status: Acute (4) Sternal fracture: Status: Acute (5) Chest wall hematoma: Status: Acute Plan The patient is a 71-year-old female who is status post fall from a ladder with right-sided rib fractures/ileal segment without clinical flail chest and sternal fracture. -no sign of concerning blunt cardiac trauma. Continue tele while inpatient -chest x-ray stable without visible pneumothorax PE or hemothorax. -continue IS/ambulation/pain control with gabapentin as opioids have made her nauseated. -PT OT for ambulation -recheck hemoglobin given drift. No sign of liver laceration. No large effusion. Likely this is a chest wall hematoma given the ecchymosis seen on exam. -okay to discharge as long as patient is off oxygen, has good pain control and able to ambulate and complete ADLs with PT OT.
[2022-06-18 07:50] VITALS: BP 143/72; PULSE 56; RESP 20; TEMP 36.9; O2SAT 97
[2022-06-18] MEDS: GABAPENTIN 300 MG CAPSULE PO ×2 (09:26→15:34)
[2022-06-18] MEDS: SODIUM CHLORIDE 0.9 % (FLUSH) 10 ML SYRINGE 5 ML IVF (09:29)
[2022-06-18] MEDS: 0.9 % SODIUM CHLORIDE 1000 ml 1,000 ML 75 ML IV (09:34)
--- NOTE | 2022-06-18 09:56 | PC.NURSE ---
Pt evaluated by Dr. Gilbert who discussed sx to report urgently r/to potential complications after her fall from ladder. Pt verbalized understanding and primary care RN reinforced these possible symptoms with patient. Eval by Dr. Guy. Tele indicates sinus bradycardia. Pt rating her rib and sternal pain 4 out of 10. IV to SL per v.o. Dr. Guy. Acetaminophen 975 mg given with PO gabapentin with am med pass. Encouraged pulmonary hygiene. Pt will have her hgb rechecked. Pt d/c'ed from CCU status to floor care status at 0900 am.
[2022-06-18 11:00] VITALS: BP 106/67; PULSE 71; RESP 20; TEMP 36.5; O2SAT 96
[2022-06-18 11:39] LABS: Hemoglobin* 10.2 gm/dL (12.0-16.0)
--- NOTE | 2022-06-18 15:44 | PC.NURSE ---
Pt received tylenol 975 mg with 300 of neurontin for pain 3 out of 10 in preparation for discharge. Ambulating well in room and hallway. Pt verbalized understanding of d/c diagnosis, home meds, pain management plan, f/up appts, new prescriptions and symptoms to report urgently to physician. IV d/c'ed, tele discontinued, continuous pulse ox discontinued. Pt remains eupneic and in NAD. Pt discharged with all personal belongings via w/c to own home with carlos Vang at 1544 pm.
--- NOTE | 2022-06-18 16:35 | P.DS_ITS ---
DS: Providers Provider Time Seen by Provider: 13:00 Date Seen: 06/18/22 Date of admission: 06/17/22 19:50 Primary care physician: Arleen Joya DO Admitting Clinician: Latasha Muhammad MD Consults: 06/17/22 16:22 Consult to Occupational Therapy [CONS] Routine Comment: Reason(s) for OT Consult:: Evaluate and Treat Any Restrictions?:: See Comment Comment: rib and sternal fractures. Consult to Physical Therapy [CONS] Routine Comment: Reason(s) for PT Consult:: Evaluate and Treat Any Restrictions?:: See Comment Comment: rib and sternal fractures. Consult to Respiratory Therapy [CONS] Routine Comment: Reason(s) for RT Consult:: Consult Comment: rib and sternum fractures; pulmonary hygiene/care. Attending Physician on discharge: Duke Guy MD Date of Discharge: 06/18/22 DS: Diagnosis Discharge Diagnosis (1) Fall from ladder: Status: Acute (2) Multiple fractures of ribs: Status: Acute (3) Sternal fracture: Status: Acute (4) Flail chest, initial encounter for closed fracture: Status: Acute (5) Chest wall hematoma: Status: Acute (6) Anemia: Status: Acute DS: Summary Hospital Course Hospital Course: 71 y/o with no significant medical history presents after a fall.? She was on a ladder washing the side of her house in preparation for it to be painted.? Her was holding the ladder until he wasn't -- the ladder slipped to the right and she came crashing down on top of ladder onto cement. The fall was estimated at 6-8 feet. She was able to yell out and slowly stand up.? She reports no head injury or loss of consciousness.? The fall was witnessed by her .? Neighbors came over and assisted.? She was able to ambulate to her car and come in by POV.? She is complaining of right chest wall pain.? No headache, bleeding from the mouth or ears, no neck pain.? No leg pain.? No arm pain. In the ED a trauma activation was initiated.? Chest abdomen pelvic CT revealed several rib fractures on the right with suspicion of a minor pneuo/hemothorax.? She also has a cracked sternum. She was given IV opioids and anti emetics.? Her labs were notable for a drop in her hemoglobin from baseline.? 13.4 last fall, 11.7 tonight.? LFTs were still pending at admission.? She was not hypoxic.? She was alert and coherent.? He was feeling nauseated and having emesis from her opioids. Admitted to CCU level care overnight, given the blunt chest trauma with concern of extension of her bleeding/pneumo. Monitored on telemetry and continuous pulse oximetry.? Patient remained hemodynamically stable. Did not require oxygen supplementation. Hemoglobins stabilized at 10 not dropping any further. It is presumed that she lost some of this blood to the chest wall hematoma. Was able to demonstrate adequate abilities for mobility and self cares. She worked with our physical and occupational therapy staff. Reviewed the same with the patient her family or agreeable. Follow up as specified. Status at Discharge Functional status at discharge: independent ambulation Overall status at discharge: patient is progressing back to baseline Time Spent with Patient Time attestation: Total time spent providing and/or coordinating discharge services: Time spent: Greater than 30 minutes Exam Narrative: Exam Narrative: CONSTITUTIONAL:? Lying on her left side, emesis bag being held secondary to nausea vomiting related to opioid therapy, cooperative. VITAL SIGNS: see record.? HEENT: Normocephalic, atraumatic. PERRL, EOMI, conjunctivae pink, no scleral icterus. Ears and nose externally normal. Pharynx normal. NECK: No JVD. No carotid bruit, no thyromegaly, no adenopathy. CHEST:? Abrasion noted along the lateral right chest wall.? No abnormal chest movements with inspiration or expiration.? No wheezing.? HEART:? No definitive murmur MUSCULOSKELETAL:? Tender across the lateral right chest wall, as expected.? I specifically palpated her orbits, her mandible, her skull, C-spine.? I inspected her right ear and behind her right ear.? I examined her right arm and chaplaincy strength which was normal.? I asked her to lift her right leg and bend her knee to chest which she was generally able to follow my commands.? This significant pain in her right chest was limiting. Able to ambulate. Able to dress and undress. It does take time for her to carry out her activities of daily living but she is able to do so nonetheless. NEURO: Cranial nerves intact.? Grossly intact.? No asymmetric findings. SKIN:? Abrasions on the did right lateral chest wall and right groin PSYCHIATRIC: Euthymic. Const: Vital Signs, click to edit/add: Vital Signs - 24 hr 06/17/22 18:02 06/17/22 18:04 06/17/22 18:11 Temperature 97.0 F L 97.0 F L Pulse Rate Pulse Rate [Right Radial] 72 72 Respiratory Rate 18 18 Blood Pressure [Le ft Arm] Blood Pressure [Ri ght Arm] 120/62 120/62 Pulse Oximetry 91 91 Oxygen Delivery Me thod Room Air Room Air Room Air Oxygen Flow Rate 06/17/22 19:45 06/17/22 19:46 06/17/22 21:00 Temperature 99.3 F Pulse Rate 65 Pulse Rate [Right Radial] 70 Respiratory Rate 12 Blood Pressure [Le ft Arm] Blood Pressure [Ri ght Arm] 107/58 L Pulse Oximetry 91 96 Oxygen Delivery Me thod Room Air Nasal Cannula Oxygen Flow Rate 1 06/17/22 21:42 06/18/22 00:00 06/18/22 00:55 Temperature 98.1 F 98.2 F Pulse Rate 60 Pulse Rate [Right Radial] 67 71 Respiratory Rate 12 12 Blood Pressure [Le ft Arm] 119/68 129/67 Blood Pressure [Ri ght Arm] Pulse Oximetry 93 96 Oxygen Delivery Me thod Nasal Cannula Nasal Cannula Oxygen Flow Rate 0.5 0.5 06/18/22 03:05 06/18/22 07:00 06/18/22 07:50 Temperature 98.1 F 98.4 F Pulse Rate 57 L Pulse Rate [Right Radial] 66 56 L Respiratory Rate 12 20 Blood Pressure [Le ft Arm] 135/69 143/72 H Blood Pressure [Ri ght Arm] 143/72 H Pulse Oximetry 92 97 Oxygen Delivery Me thod Room Air Nasal Cannula Oxygen Flow Rate 0.5 0.5 06/18/22 11:00 Temperature 97.7 F Pulse Rate Pulse Rate [Right Radial] 71 Respiratory Rate 20 Blood Pressure [Le ft Arm] 106/67 Blood Pressure [Ri ght Arm] Pulse Oximetry 96 Oxygen Delivery Me thod Room Air Oxygen Flow Rate Documenting provider has reviewed patient's vital signs: yes DS: Data Data Completed and Pending Labs on day of discharge: Labs from last 24 hours 06/18/22 06/18/22 06/18/22 11:31 06:27 06:27 WBC RBC Hgb 10.2 L Hct MCV MCH MCHC Plt Count VBG pH VBG pCO2 VBG pO2 VBG HCO3 Sodium 137 Potassium 3.9 Chloride 104 Carbon Dioxide 29 BUN 13 Creatinine 0.9 Estimated Creat Clear 38.14 Estimated GFR 69 Glucose 102 Lactate 0.9 Calcium 7.9 L Total Bilirubin 0.7 Direct Bilirubin AST 59 H ALT 37 H Alkaline Phosphatase 79 C-Reactive Protein 2.2 H Total Protein 6.1 Albumin 3.4 SARS-CoV-2 (PCR) 06/18/22 06/18/22 06/17/22 06:27 06:27 21:51 WBC 7.10 RBC 3.82 L Hgb 9.8 L 10.8 L Hct 31.2 L MCV 82 MCH 26 MCHC 31 L Plt Count 204 VBG pH 7.344 VBG pCO2 52 H VBG pO2 25.3 VBG HCO3 28 Sodium Potassium Chloride Carbon Dioxide BUN Creatinine Estimated Creat Clear Estimated GFR Glucose Lactate Calcium Total Bilirubin Direct Bilirubin AST ALT Alkaline Phosphatase C-Reactive Protein Total Protein Albumin SARS-CoV-2 (PCR) 06/17/22 06/17/22 06/17/22 18:16 16:51 16:35 WBC RBC Hgb 11.0 L Hct MCV MCH MCHC Plt Count VBG pH VBG pCO2 VBG pO2 VBG HCO3 Sodium Potassium Chloride Carbon Dioxide BUN Creatinine Estimated Creat Clear Estimated GFR Glucose Lactate Calcium Total Bilirubin 0.5 Direct Bilirubin 0.2 AST 82 H ALT 48 H Alkaline Phosphatase 108 C-Reactive Protein < 0.5 L Total Protein 7.5 Albumin 4.3 SARS-CoV-2 (PCR) Negative SARS-CoV-[address] Chest/Ab/Pelvis: Attestation: I have reviewed the pertinent imaging results. Radiologist's impression: 1. Rib fractures with small localized segment of a flail chest (involving rib fractures of the same rib more than 1 site) involving the 7th 8th and 9th ribs. No gross chest wall deformity. 2. Small amount of posttraumatic chest wall hematoma and some linear gas right chest wall and abdominal wall. 3. Nondisplaced small cortical fractures of the posterior sternal body with minimal posterior retrosternal hematoma. No large mediastinal hematoma. 4. No signs of definite aortic injury. 5. No signs of definite liver laceration or other solid organ injury in the abdomen. 6. No other suspicious radiographic abnormalities. CT- Other: Radiologist's impression: CT of cervical spine: No CT evidence of cervical spine fracture or static subluxation. CT of lumbar spine: No acute osseous abnormality. Chronic bilateral L5 pars defects with associated grade 2 anterolisthesis of L5 on S1. CT of thoracic spine: Minimal anterolisthesis of T2 on T3 likely secondary to adjacent facet arthropathy. Otherwise normal vertebral body alignment. The facet joints articulate normally. The vertebral body heights are preserved. The posterior elements appear intact. There is mild multilevel disc space height loss and anterior endplate osteophytosis. Chest x-ray: Attestation: I have reviewed the pertinent imaging results. Radiologist's impression: Chest x-ray on date of discharge, 1 day status post admission: Persistent basilar atelectasis and mild interstitial prominence. No evidence of significant accumulation of previously seen bilateral trace pneumothoraces. Discharge Plan Discharge Disposition: Home, Self-Care Date of Admission: 06/17/22 19:50 Attending Provider on Discharge: Duke Guy Primary Care Provider: Arleen Joya Condition: Improved Anticipated Discharge Date/Time: 06/18/22 16:00 Discharge Medications: New acetaminophen 325 mg Tablet 650 mg PO QID 14 Days Qty: 112 0RF gabapentin 300 mg Capsule 300 mg PO TID PRN (Reason: As Needed For Fever Or Pain) Qty: 20 0RF oxycodone 5 mg Tablet 2.5 mg PO Q4H PRN (Reason: Pain) Qty: 14 0RF hydroxyzine pamoate 25 mg Capsule 25 mg PO Q4H PRNQty: 20 0RF Rx Instructions: PRN pain ondansetron 4 mg tablet,disintegrating 4 mg PO Q8H Qty: 15 0RF Rx Instructions: PRN nausea or vomiting Continued fluticasone propionate 50 mcg/actuation spray,suspension 2 spray intranasal DAILY Label Comments: Inhale 2 Sprays into both nostrils once daily. Discharge Orders: Discharge Order (Routine); Ordered 06/18/22 Ordered By: Duke Guy Patient Education: Acetaminophen (By mouth), Hydroxyzine (By mouth), Gabapentin (By mouth), Oxycodone, Rapid Release (By mouth), Ondansetron (By mouth), Rib Fracture (GEN) Activity Restrictions/Additional Instructions: 1. Follow-up with Dr. Joya in 4-10 days, with pre-visit hemoglobin check; 2. Return to hospital or clinic sooner if needed; 3. Adhere to recommendations per physical and occupational therapy. Activity Level: Activity as Tolerated Discharge Diet: Regular Follow Up Appointments: Arleen Joya DO [Primary Care Provider] - 06/22/22 1:50 pm (Follow up on 06/22 Hemoglobin lab on 06/22 at 1:30pm) Forms: [employer] Info Instructions
--- NOTE | 2022-06-18 17:47 | P.EN_ITS ---
Chart Event Note Date Seen: 06/18/22 Chart Event Note: Alerted by shift nurse manager after discharge that the discharge meds were not received by [facility] pharmacy. Verbally gave orders for the gabapentin, hydroxyzine. Interestingly 1 of her meds was received. I then electronically prescribed her oxycodone.
--- NOTE | 2022-06-18 17:47 | PM.EN ---
Chart Event Note Date Seen: 06/18/22 Chart Event Note: Alerted by maintenance supervisor 2nd shift after discharge that the discharge meds were not received by [facility] pharmacy. Verbally gave orders for the gabapentin, hydroxyzine. Interestingly 1 of her meds was received. I then electronically prescribed her oxycodone.
== END 2022-06-18 15:45 | disposition home or self-care (01) | DRG 184 ==
LOC: ED 16:16 → MEDSURG 16:21
PROVIDERS: Internal Medicine; Admitting Provider Family Medicine; Emergency Provider Emergency Medicine Emergency Medical Services; PCP Family Medicine; Visit Provider Family Medicine
DX: S22.5XXA Flail chest, initial encounter for closed fracture (principal); D62 Acute posthemorrhagic anemia; W11.XXXA Fall on and from ladder, initial encounter; S20.219A Contusion of unspecified front wall of thorax, initial encounter; Y93.H3 Activity, building and construction; Y92.017 Garden or yard in single-family (private) house as the place of occurrence of the external cause; G47.33 Obstructive sleep apnea (adult) (pediatric); I10 Essential (primary) hypertension; Z85.828 Personal history of other malignant neoplasm of skin; M85.80 Other specified disorders of bone density and structure, unspecified site; E21.3 Hyperparathyroidism, unspecified
CPT/HCPCS: 36415; 51798; 71045; 71260; 72125; 72128; 72131; 74177; 80048; 80053; 80076; 82565; 82803; 83605; 85018; 85025; 85027; 86140; 87635; 93005; 94761; 97116; 97161; 97165; 97530; 97535; 99285; 99291; A9270; C9113; J0780; J1170; J1885; J2060; J2405; J7030; J7120; Q9967

== ENCOUNTER 2022-06-22 16:47 | Inpatient (IN) | payer MEDICARE, OTHER, SELFPAY ==
[2022-06-22 17:04] VITALS: BP 153/94; PULSE 87; RESP 18; TEMP 36.8; O2SAT 94; BMI 29.1
--- NOTE | 2022-06-22 18:55 | P.GSCN_ITS ---
History of Present Illness Consult details Date Seen: 06/22/22 Consult date: 06/22/22 Reason for consult: chest tube Narrative: Patient initially presented to the emergency department and was hospitalized for 2 days after falling from a ladder 6-8 feet. She landed on her right side during that event. Trauma workup was obtained with evidence of a sternal fracture and associated hematoma, right-sided rib fractures of 7 8 and 9- multiple segments with evidence of flail chest. A small apical pneumothorax on CT imaging was visualized at that time. On serial chest x-ray imaging there was no visualization. She was discharged home 2 days earlier and initially states that she was doing well but then on Saturday started to develop some increasing shortness of breath and exercise intolerance. She also reports continued pain on her chest, but this has been stable since the accident. She presented to her primary care provider for follow-up with a recheck hemoglobin, which was stable, and repeat her chest x-ray imaging. On chest x-ray there was evidence of a moderate right-sided apical pneumothorax. Review of Systems Status of ROS: Reports: 10 or more systems reviewed and unremarkable except as noted in History and below 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 Highest level of school completed/degree received: Master's degree Smoking Status: Never smoker Do you use any of these nicotine containing products: None Second hand tobacco smoke exposure: Yes How often do you have a drink containing alcohol: 2-4 times a month Alcohol type: beer and wine AUDIT-C Alcohol total score: 2 Non-prescribed substance use: denies use Caffeine: Yes (2 cups) service: No Meds Home Medications and Allergies Home Medications Medication Instructions Recorded Confirmed Type fluticasone propionate 50 2 spray intranasal DAILY 06/18/22 06/22/22 History mcg/actuation nasal spray,suspension acetaminophen 325 mg tablet 650 mg PO QID PRN 06/22/22 06/22/22 History ondansetron 4 mg disintegrating 4 mg PO Q8H PRN nausea and vomiting 06/22/22 06/22/22 History tablet Allergies Allergy/AdvReac Type Severity Reaction Status Date / Time Opioids - Morphine Analogues AdvReac Severe Vomiting Verified 06/17/22 15:01 codeine AdvReac Intermediate Gastrointestinal Verified 06/17/22 19:09 Upset Bupivicaine Allergy Intermediate Uncoded 06/17/22 19:09 Animal Dander Allergy Unknown Uncoded 06/17/22 19:09 Dust Allergy Unknown Uncoded 06/17/22 19:09 Molds and Smuts Allergy Unknown Uncoded 06/17/22 19:09 Pollens Allergy Unknown Uncoded 06/17/22 19:09 Hydrocodone AdvReac Intermediate Gastrointestinal Uncoded 06/17/22 19:09 Upset Methylprednisolone AdvReac Intermediate Uncoded 06/17/22 19:09 Exam Narrative: Exam Narrative: General: Alert and oriented, no acute distress Respiratory: Equal breath rise, decreased breath sounds on right. Patient with splinting on deep inspiration. She is maintained on room air Chest: Tender to palpation over the sternum, no significant ecchymoses or hematoma appreciated. CV: Regular rhythm rate, well perfused Const: Vital Signs, click to edit/add: Vital Signs - 24 hr 06/22/22 17:04 Temperature 98.2 F Pulse Rate [Right Pulse Oximeter] 87 Respiratory Rate 18 Blood Pressure [Ri ght Arm] 153/94 H Pulse Oximetry 94 Oxygen Delivery Me thod Room Air Results Labs Labs: All other labs normal. Imaging Chest x-ray: report reviewed and image reviewed ([facility] system) Assessment and Plan Assessment and plan (1) Traumatic pneumothorax: Status: Acute Plan Patient is a 71-year-old female, with recent trauma to the right chest wall. She presents today with delayed presentation of a traumatic right-sided pneumothorax. It appears to be approximately 30% on chest x-ray imaging. Given the patient's symptoms and size of the pneumothorax risks and benefits of pigtail chest tube catheter was discussed at length with the patient. Risks included but were not limited to: Bleeding, infection, risk of damage to surrounding structures and possible need for additional procedures. All questions and concerns were addressed with patient agreeing to proceed. A 9 M[place]gas[place] pigtail catheter was placed on the anterior right chest wall. Patient tolerated procedure well without immediate complication. Chest x-ray on immediate postop demonstrated complete re-expansion. Will continue with chest tube to suction overnight. -chest tube at -20 cm and wall suction -repeat chest x-ray tomorrow morning -okay for regular diet -encourage ambulation, okay to take chest tube off wall suction with ambulation -patient does normally wear CPAP at night, will hold off on utilizing this tonight General Surgery Procedures Chest Tube Chest Tube 1: Chest tube location: Anterior Chest Size of tube: 9 Procedure: placement Preperation: Yes betadine prep Tube sutured to skin: Yes Sterile dressing applied: Yes Anesthesia: 1% Lidocaine Volume anesthetic (ml): 9 Incision made with: #11 blade Post procedure: sutured to skin and sterile dressing applied Cramer of air heard: Yes Tube Drainage: none Post procedure CXR?: Yes Patient tolerated procedure: Yes Additional comments: Patient tolerated procedure well. Evidence of adequate placement in re- expansion on postprocedure chest x-ray imaging.
[2022-06-22 19:00] VITALS: BP 151/74; PULSE 81; RESP 18; TEMP 36.8; O2SAT 92
--- NOTE | 2022-06-22 19:05 | PM.IMHP1 ---
Hospitalist- H&P: CHELO History of Present Illness Date Seen: 06/22/22 Chief complaint: Direct Admit Narrative: Fauzia Howard is a 71 year old female hospitalized here from June 17 to June 18 after a fall off a ladder at home with rib fractures and sternal fracture now presenting with progressive dyspnea. She reports that she was doing fairly well other than her rib pain and sternal pain at the time of discharge on June 18. Subsequently she reports increasing shortness of breath. She was seen in clinic today were chest x-ray showed increased pneumothorax on the right and bilateral pleural effusions. She has not any new chest pain. She does report progressive dyspnea with exertion. She says her breathing is comfortable at rest. She has not had any fever. She reports she has been able to eat and drink. Her pain has been adequately controlled with a combination of hydroxyzine, gabapentin. She very poorly tolerates opioids due to severe nausea. She had a hemoglobin on discharge of 10.3 and her hemoglobin today is 10.2 in clinic. She reports that she is having bilateral mild lower extremity edema which is new Review of Systems Narrative: Right rib pain and sternal pain continued to bother her but she reports she is able to manage. The dyspnea has been progressively worse over the last few days. She also notes that she is having generalized edema which is mild. 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 Highest level of school completed/degree received: Master's degree Smoking Status: Never smoker Do you use any of these nicotine containing products: None Second hand tobacco smoke exposure: Yes How often do you have a drink containing alcohol: 2-4 times a month Alcohol type: beer and wine AUDIT-C Alcohol total score: 2 Non-prescribed substance use: denies use Caffeine: Yes (2 cups) service: No Meds Home Medications and Allergies Home Medications Medication Instructions Recorded Confirmed Type fluticasone propionate 50 2 spray intranasal DAILY 06/18/22 06/22/22 History mcg/actuation nasal spray,suspension acetaminophen 325 mg tablet 650 mg PO QID PRN 06/22/22 06/22/22 History ondansetron 4 mg disintegrating 4 mg PO Q8H PRN nausea and vomiting 06/22/22 06/22/22 History tablet Allergies Allergy/AdvReac Type Severity Reaction Status Date / Time Opioids - Morphine Analogues AdvReac Severe Vomiting Verified 06/17/22 15:01 codeine AdvReac Intermediate Gastrointestinal Verified 06/17/22 19:09 Upset Bupivicaine Allergy Intermediate Uncoded 06/17/22 19:09 Animal Dander Allergy Unknown Uncoded 06/17/22 19:09 Dust Allergy Unknown Uncoded 06/17/22 19:09 Molds and Smuts Allergy Unknown Uncoded 06/17/22 19:09 Pollens Allergy Unknown Uncoded 06/17/22 19:09 Hydrocodone AdvReac Intermediate Gastrointestinal Uncoded 06/17/22 19:09 Upset Methylprednisolone AdvReac Intermediate Uncoded 06/17/22 19:09 Exam Narrative: Exam Narrative: She is alert and appears in no distress. She is sitting in a chair. Head is without trauma. Oropharynx normal. Neck is supple out mass or adenopathy. No tenderness no jugular venous distension. Respirations are clear to auscultation. She has occasional basilar crackle. No wheezing. Fair air exchange all lung adams. She has difficulties taking deep breaths due to her rib and sternal pain. Inspection shows bruising over her lower sternum and lower right lateral ribcage. No crepitance. Cardiovascular: S1, S2, regular rate and rhythm. No murmur gallop or rub. Abdomen: Bowel sounds active. Abdomen is soft without tenderness or mass. Extremities with trace edema bilaterally in her ankles. She has intact pedal pulses. She moves all 4 extremities well. Const: Vital Signs, click to edit/add: Vital Signs - 24 hr 06/22/22 17:04 Temperature 98.2 F Pulse Rate [Right Pulse Oximeter] 87 Respiratory Rate 18 Blood Pressure [Ri ght Arm] 153/94 H Pulse Oximetry 94 Oxygen Delivery Me thod Room Air Documenting provider has reviewed patient's vital signs: yes Hospitalist - H&P: Result Imaging Chest x-ray: Radiologist's impression: Chest x-ray in the clinic shows right-sided pneumothorax with the proximally 3.3 cm of pleural separation at the lung apex. She has multiple displaced right-sided rib fractures. Small to moderate bilateral pleural effusions with bibasilar atelectasis. Assessment and Plan Assessment and plan (1) Traumatic pneumothorax: Status: Acute Assessment and Plan: Chest tube per Dr. Marie (2) Multiple fractures of ribs: Status: Acute Assessment and Plan: Symptomatic treatment and monitor for complications (3) Sternal fracture: Status: Acute Assessment and Plan: Symptomatic treatment and monitor for complications Plan Will admit to the hospital for management of chest tube and ongoing evaluation management of dyspnea. Total time spent today is 75 minutes, 50 minutes in coordination of care discussing with patient, daughter and other providers management of pain and rib fractures and chest tube
[2022-06-22 19:13] LABS: SARS PCR* Negative SARS-CoV-2 (Negative)
--- NOTE | 2022-06-22 19:22 | CRLHL7_ITS ---
For Patients: As a result of the Century Cures Act, medical imaging exams and procedure reports are released immediately into your electronic medical record. You may view this report before your referring provider. If you have questions, please contact your health care provider. HISTORY: Chest tube placement. COMPARISON: Chest single view from 06/18/2022 FINDINGS: A portable erect AP view of the chest was obtained at 1946 hours. There is a small caliber chest tube placed with its tip in the right apex, with no sign of pneumothorax. There are new small bilateral pleural effusions. There is new moderate right greater than left basilar consolidation, probably atelectasis. The rest of the chest remains clear. The heart remains normal in size. The mediastinum is normal in appearance. The osseous structures are normal in appearance for the patient`s age. IMPRESSION: Satisfactory positioning of a right apical small caliber chest tube with no sign of pneumothorax. New small bilateral pleural effusions with new moderate right and mild left basilar consolidation, probably atelectasis. Dictated by Chong Dunbar MD @ 06/22/2022 7:59:55 PM (Electronically Signed)
--- NOTE | 2022-06-22 19:29 | PC.NURSE ---
Shift Summary: Patient pleasant and cooperative. Arrived to room around 1500. Independent, stable gait. Stated pain is tolerable. IV placed in right AC by beam house inspector NIKI Gaytan. Patient NPO prior to chest to insertion. Chest tube insertion done [address] Marie.
[2022-06-22] MEDS: ACETAMINOPHEN 325 MG TABLET 650 MG PO (19:43)
[2022-06-22] MEDS: IBUPROFEN 400 MG TABLET PO (20:11)
[2022-06-22] MEDS: GABAPENTIN 300 MG CAPSULE PO (21:56)
[2022-06-22] MEDS: hydrOXYzine pamoate 25 MG CAPSULE PO (21:56)
[2022-06-22 21:59] VITALS: BP 147/76; PULSE 76; RESP 18; TEMP 36.6; O2SAT 91
[2022-06-22] MEDS: ENOXAPARIN 40 MG/0.4 ML INJ SUBCUT (22:21)
[2022-06-22] MEDS: LORazepam 2 MG/ML inj 1 MG IVP (22:48)
[2022-06-22 23:00] VITALS: PULSE 76; RESP 18
[2022-06-23] VITALS (7 sets, daily range): BP systolic 118–165; BP diastolic 74–96; PULSE 70–88; RESP 18–20; TEMP 36.6–37.1; O2SAT 90–94
--- NOTE | 2022-06-23 04:44 | PC.NURSE ---
chest tube to suction entire shift, bedside commode used, pain meds per EMAR. ice to chest tube insertion site. c/o pain in back with quick movements, ice to back.
[2022-06-23] MEDS: ACETAMINOPHEN 325 MG TABLET 650 MG PO ×3 (06:47→21:28)
[2022-06-23 06:59] LABS: Basophils Absolute Auto 0.05 K/uL (0.00-0.30); Basophils Percent Auto 0.8 % (0.0-3.0); Eosinophils Percent Auto 7.1 % (0.0-7.0); Hematocrit 32.6 % (33.0-51.0); Hemoglobin* 10.4 gm/dL (12.0-16.0); Immature Granulocytes Abs Auto 0.05 K/uL (0.00-0.30); Lymphocytes Absolute Auto 1.71 K/uL (0.90-2.90); Lymphocytes Percent Auto 27.4 % (20-44); Mean Corpuscular HGB Conc 32 gm/dL (32-36); Mean Corpuscular Hemoglobin 26 pg (26-34); Mean Corpuscular Volume 81 fL (80-100); Monocytes Percent Auto 12.8 % (0.0-11.0); Neutrophils Absolute Auto 3.19 K/uL (1.7-7.0); Neutrophils Percent Auto 51.1 % (42.0-72.0); Platelet Count* 284 K/uL (140-440); RDW Coefficient of Variation % 18.4 % (11.5-15.5); Red Blood Count 4.05 m/uL (4.00-5.20); White Blood Count* 6.24 K/uL (4.50-11.00)
[2022-06-23 07:06] LABS: Slide Review Reflex No
[2022-06-23 07:21] LABS: Chloride* 104 mmol/L (96-114); Potassium* 4.3 mmol/L (3.6-5.1); Sodium* 137 mmol/L (135-149)
[2022-06-23 07:24] LABS: Creatinine* 0.9 mg/dL (0.5-1.5); Est. Creatinine Clearance* 38.14; Estimated Glomerular Filt Rate 69 ml/min
[2022-06-23 07:25] LABS: Blood Urea Nitrogen* 12 mg/dL (7-30); Calcium* 9.2 mg/dL (8.4-10.6); Carbon Dioxide* 26 mmol/L (20-32); Glucose* 95 mg/dL (60-115)
[2022-06-23 07:28] LABS: C Reactive Protein* 3.9 mg/dL (0.5-1.0)
[2022-06-23 07:33] LABS: NT Pro B Type NatriureticPept* 151 PG/mL (0-125)
--- NOTE | 2022-06-23 08:13 | CRLHL7_ITS ---
For Patients: As a result of the Cures Act, medical imaging exams and procedure reports are released immediately into your electronic medical record. You may view this report before your referring provider. If you have questions, please contact your health care provider. INDICATION: Chest tube. TECHNIQUE: Chest 1 views. COMPARISON: 06/22/2022. FINDINGS/IMPRESSION: Cardiovascular and mediastinum: Heart size and pulmonary vasculature are stable. Right apical chest tube slightly folded back on itself compared to prior exam although still within the pleural space. No discernible pneumothorax. Stable bibasilar opacities and pleural effusions. Bones and soft tissues: No significant findings. Dictated by Lex Worrell MD @ 06/23/2022 9:09:06 AM (Electronically Signed)
[2022-06-23] MEDS: GABAPENTIN 300 MG CAPSULE PO ×3 (09:20→21:28)
--- NOTE | 2022-06-23 09:53 | P.GSPN_ITS ---
Subjective Subjective Date Seen: 06/23/22 Interval history: patient overall is doing well this morning. She denies any shortness of breath. She does report some sharp right shoulder pain with movement that started last night. She has been nervous to move her right arm secondary to thi s discomfort. Lying completely still prevent the pain. Exam Narrative: Exam Narrative: General: Alert and oriented, no acute distress respiratory: Equal breath rise bilaterally, maintained on room air. Right chest tube in place and connected to suction. No evidence of air leak with coughing. Minimal serosanguineous output in canister CV: Regular rhythm rate, well perfused abdomen: Soft, nontender, nondistended Const: Vital Signs, click to edit/add: Vital Signs - 24 hr 06/22/22 17:04 06/22/22 19:00 06/22/22 21:59 Temperature 98.2 F 98.2 F 98 F Pulse Rate [Right Pulse Oximeter] 87 81 76 Respiratory Rate 18 18 18 Blood Pressure [Ri ght Arm] 153/94 H 151/74 H 147/76 H Pulse Oximetry 94 92 91 Oxygen Delivery Me thod Room Air Room Air Room Air 06/22/22 23:00 06/23/22 01:00 06/23/22 07:00 Temperature 98 F 98.1 F Pulse Rate [Right Pulse Oximeter] 76 76 Respiratory Rate 18 18 Blood Pressure [Ri ght Arm] 147/76 H 165/96 H Pulse Oximetry 91 90 Oxygen Delivery Me thod Room Air Room Air Labs/Imaging Imaging Imaging: Chest x-ray: No residual right-sided pneumothorax with right chest tube in place Progress Note: A&P Assessment and plan (1) Traumatic pneumothorax: Status: Acute Assessment and Plan: Patient is postprocedure day 1 right-sided chest tube for traumatic pneumothorax. The small air leak that was appreciated after placing the chest tube was not present on my examination this morning. Chest x-ray this morning shows no residual pneumothorax. Her right shoulder pain could be secondary to diaphragmatic irritation. I did encourage the patient to ambulate the halls today. Will take the chest tube off of suction in place to water seal with timed chest x-ray this afternoon. If there is still no evidence of any residual pneumothorax will then plan for a clamping trial.
[2022-06-23] MEDS: KETOROLAC 15 MG/ML inj IVP (10:23)
[2022-06-23] MEDS: hydrOXYzine pamoate 25 MG CAPSULE PO ×3 (13:27→22:21)
--- NOTE | 2022-06-23 13:43 | P.IMPN_ITS ---
Progress Note: A&P Assessment and plan (1) Traumatic pneumothorax: Status: Acute Assessment and Plan: Continue coordination of care with General surgery. Currently plan is to clamp the tube and if doing well possible discharge tomorrow (2) Fall from ladder: Status: Acute Assessment and Plan: Multiple rib fractures and sternal fracture. Clinically stable and slowly improving (3) Bilateral pleural effusion: Status: Acute Assessment and Plan: Related to recent trauma. Continue to monitor. Plan Continue in hospital for chest tube drainage and pain management. Continue VTE prophylaxis with enoxaparin. Time Spent With Patient Total time spent: Total time spent today is 30 minutes, 20 minutes in coordination of care discussing with patient and other providers ongoing evaluation management rib fractures and chest tube Subjective Date Seen: 06/23/22 Interval history: 71-year-old female seen in followup of traumatic pneumothorax and chest tube placement yesterday. She reports feeling better today she thinks her breathing is better though she has been primarily in bed due to her chest tube. Her pain is manageable. She finds the NSAIDs to be quite beneficial for pain management. She reports no fever. She has been able to eat fairly well today. She does note some bilateral ankle edema. No fever. Exam Narrative: Exam Narrative: She is alert and appears in no distress. She is oriented to her circumstances. She is pleasant and cooperative. Respirations are clear to auscultation. She has fairly good air exchange in all lung adams. Cardiovascular: S1, S2, regular rate and rhythm. Chest tube insertion site in her anterior right upper chest is without erythema. Small amount of serosanguineous fluid in her chest tube drainage. Abdomen is soft without tenderness or mass extremities with trace edema. Const: Vital Signs, click to edit/add: Vital Signs - 24 hr 06/22/22 17:04 06/22/22 19:00 06/22/22 21:59 Temperature 98.2 F 98.2 F 98 F Pulse Rate [Right Pulse Oximeter] 87 81 76 Respiratory Rate 18 18 18 Blood Pressure [Ri ght Arm] 153/94 H 151/74 H 147/76 H Pulse Oximetry 94 92 91 Oxygen Delivery Me thod Room Air Room Air Room Air 06/22/22 23:00 06/23/22 01:00 06/23/22 07:00 Temperature 98 F 98.1 F Pulse Rate [Right Pulse Oximeter] 76 76 Respiratory Rate 18 18 Blood Pressure [Ri ght Arm] 147/76 H 165/96 H Pulse Oximetry 91 90 Oxygen Delivery Me thod Room Air Room Air Documenting provider has reviewed patient's vital signs: yes Labs Labs: Laboratory Results - last 24 hr 06/22/22 06/23/22 06/23/22 17:47 06:28 06:28 WBC 6.24 RBC 4.05 Hgb 10.4 L Hct 32.6 L MCV 81 MCH 26 MCHC 32 RDW Coeff of Keira 18.4 H Plt Count 284 Neut % (Auto) 51.1 Lymph % (Auto) 27.4 Moore % (Auto) 12.8 H Eos % (Auto) 7.1 H Baso % (Auto) 0.8 Neut # (Auto) 3.19 Lymph # (Auto) 1.71 Moore # (Auto) 0.80 Eos # (Auto) 0.40 Baso # (Auto) 0.05 Abs Immat Gran (auto) 0.05 Sodium 137 Potassium 4.3 Chloride 104 Carbon Dioxide 26 BUN 12 Creatinine 0.9 Estimated Creat Clear 38.14 Estimated GFR 69 Glucose 95 Calcium 9.2 C-Reactive Protein 3.9 H NT-Pro-B Natriuret Pep 151 H SARS-CoV-2 (PCR) Negative SARS-CoV-2
--- NOTE | 2022-06-23 15:00 | CRLHL7_ITS ---
For Patients: As a result of the Cures Act, medical imaging exams and procedure reports are released immediately into your electronic medical record. You may view this report before your referring provider. If you have questions, please contact your health care provider. INDICATION: Chest tube to water seal. TECHNIQUE: AP chest at 1522 hours. COMPARISON: 0850 hours. IMPRESSION: The right-sided chest tube has slightly changed in position compared to the prior study with the right tip now terminating in the lateral aspect of the right apex of the right hemithorax. No pneumothorax is seen. Small bilateral pleural effusions and bibasilar atelectasis are again noted. Dictated by Dilip Nova MD @ 06/23/2022 4:06:40 PM (Electronically Signed)
--- NOTE | 2022-06-23 15:21 | PC.NURSE ---
Eval by Dr. Marie, Chest tube to water seal. Suction off. Portable CXR completed. Please see eMar for medications given to this patient on day shift for c/o pain with movement near her right shoulder blade. Pain 3-8 depending on position changes or increased activity. Plan repeat Portable CXR at 3PM. Report to Mary Guzman RN for evening shift.
--- NOTE | 2022-06-23 17:42 | PC.NURSE ---
Shift summary 15-19: Patient pleasant and cooperative. Had portable chest xray done @ 1500, called following results and ordered that patients chest tube be clamped for tonight, new order for chest xray @ 0700 06/24/22. Patient states pain is tolerable at this time while lying on left side, denies need for medication at this time.
[2022-06-23] MEDS: IBUPROFEN 400 MG TABLET PO (17:50)
[2022-06-23] MEDS: ENOXAPARIN 40 MG/0.4 ML INJ SUBCUT (21:27)
[2022-06-23] MEDS: LORazepam 2 MG/ML inj 1 MG IVP (22:21)
[2022-06-24 03:00] VITALS: BP 133/82; PULSE 84; RESP 18; TEMP 36.7; O2SAT 90
[2022-06-24] MEDS: hydrOXYzine pamoate 25 MG CAPSULE PO (06:15)
[2022-06-24] MEDS: ACETAMINOPHEN 325 MG TABLET 650 MG PO (06:15)
[2022-06-24 06:36] LABS: Basophils Absolute Auto 0.05 K/uL (0.00-0.30); Basophils Percent Auto 0.8 % (0.0-3.0); Eosinophils Percent Auto 7.9 % (0.0-7.0); Hematocrit 32.4 % (33.0-51.0); Hemoglobin* 10.5 gm/dL (12.0-16.0); Immature Granulocytes Abs Auto 0.02 K/uL (0.00-0.30); Lymphocytes Absolute Auto 2.04 K/uL (0.90-2.90); Lymphocytes Percent Auto 32.9 % (20-44); Mean Corpuscular HGB Conc 32 gm/dL (32-36); Mean Corpuscular Hemoglobin 26 pg (26-34); Mean Corpuscular Volume 81 fL (80-100); Monocytes Percent Auto 12.7 % (0.0-11.0); Neutrophils Absolute Auto 2.82 K/uL (1.7-7.0); Neutrophils Percent Auto 45.4 % (42.0-72.0); Platelet Count* 307 K/uL (140-440); RDW Coefficient of Variation % 18.5 % (11.5-15.5); White Blood Count* 6.21 K/uL (4.50-11.00)
[2022-06-24 06:37] LABS: Slide Review Reflex No
--- NOTE | 2022-06-24 07:00 | CRLHL7_ITS ---
For Patients: As a result of the Century Cures Act, medical imaging exams and procedure reports are released immediately into your electronic medical record. You may view this report before your referring provider. If you have questions, please contact your health care provider. INDICATION: Pneumothorax with chest tube TECHNIQUE: Chest 1 view. COMPARISON: One day prior FINDINGS: Re-identified is a small bore right-sided chest tube with the distal tip identified in the lateral aspect of the apex of the right hemithorax. No underlying pneumothorax is seen. A small pleural fluid collection is suspected laterally and inferiorly at the right lung base adjacent to acute displaced rib fractures. Mild bibasilar atelectasis is re-identified. The mid and upper lungs remain clear. The small left-sided pleural effusion is suspected as well. IMPRESSION: Stable findings with a small bore right-sided chest tube and no pneumothorax. Other findings are as discussed above. Dictated by Franklin Preston MD @ 06/24/2022 9:21:12 AM (Electronically Signed)
--- NOTE | 2022-06-24 07:53 | PC.NURSE ---
[id number]: Took patient over from Amy at 0000. Pleasant and cooperative. Patient rested well during noc. Chest tube clamped by Surgeon yesterday. Awaiting X-ray. SBA in room d/t chest tube. C/o stiffness this morning. Tylenol and Visceral administered. Patient noted being mildly SOB after trip to the BR. O2 sats 92% RA.
[2022-06-24 08:00] VITALS: BP 138/87; PULSE 75; RESP 20; TEMP 36.6; O2SAT 93
[2022-06-24] MEDS: IBUPROFEN 400 MG TABLET PO (09:05)
[2022-06-24] MEDS: GABAPENTIN 300 MG CAPSULE PO (09:06)
--- NOTE | 2022-06-24 09:42 | PM.GSPN ---
Subjective Subjective Date Seen: 06/24/22 Interval history: Patient is doing well this morning. She was up walking the halls yesterday and reports no further shortness of breath. Overall she feels improved after placing the chest tube. The chest tube was clamped yesterday afternoon, with patient tolerating well and no new symptoms. Exam Narrative: Exam Narrative: General: Alert and oriented, no acute distress Respiratory: Equal breath rise bilaterally, maintained on room air. Chest tube clamped with minimal serous output in tube. Const: Vital Signs, click to edit/add: Vital Signs - 24 hr 06/23/22 11:00 06/23/22 16:20 06/23/22 20:00 Temperature 98.8 F 98.2 F 98 F Pulse Rate [Right Pulse Oximeter] 88 76 70 Respiratory Rate 20 18 18 Blood Pressure [Ri ght Arm] 141/76 H 132/76 142/87 H Pulse Oximetry 90 94 94 Oxygen Delivery Me thod Room Air Room Air Room Air 06/23/22 22:25 06/23/22 23:00 06/24/22 03:00 Temperature 98 F 98.1 F Pulse Rate [Right Pulse Oximeter] 82 82 84 Respiratory Rate 18 18 18 Blood Pressure [Ri ght Arm] 118/74 133/82 Pulse Oximetry 92 90 Oxygen Delivery Me thod Room Air Room Air Labs/Imaging Imaging Imaging: Chest x-ray this morning with no residual pneumothorax. Chest tube remains in place. Progress Note: A&P Assessment and plan (1) Traumatic pneumothorax: Status: Acute Assessment and Plan: Patient is postprocedure day 2 right-sided chest tube for traumatic pneumothorax. After water seal yesterday repeat chest x-ray imaging was done at 6 hours and showed no pneumothorax. The chest tube was then clamped and has remained clamped for the last 12 hours with patient reporting no new symptoms. Repeat chest x-ray this morning demonstrated again no pneumothorax. The chest tube was removed at bedside without difficulty. Patient tolerated procedure well without immediate complication. Okay to discharge home today.
--- NOTE | 2022-06-24 10:04 | PM.DS1 ---
DS: Providers Provider Date Seen: 06/24/22 Date of admission: 06/22/22 18:38 Primary care physician: Arleen Joya DO Admitting Clinician: Odell Brown MD Attending Physician on discharge: Odell Borwn MD Date of Discharge: 06/24/22 DS: Diagnosis Discharge Diagnosis (1) Traumatic pneumothorax: Status: Acute Problem details: Pneumothorax managed with chest tube. Chest tube removed without recurrence of pneumothorax (2) Bilateral pleural effusion: Status: Acute Problem details: Small bilateral pleural effusions developed as a consequence sternal fracture and rib fractures. (3) Anemia: Status: Acute Problem details: Thought secondary to trauma. Stable hemoglobin. (4) Multiple fractures of ribs: Status: Acute Problem details: Adequate pain control with cautious use of ibuprofen (5) Sternal fracture: Status: Acute Problem details: Adequate pain control with cautious use of ibuprofen DS: Summary Hospital Course Hospital Course: 71-year-old female fell off a ladder and was admitted to the hospital overnight. She was diagnosed with multiple right-sided rib fractures and sternal fracture. She did well and was discharged to home. After discharge she had more shortness of breath and was seen in clinic. There she was found to have a pneumothorax and pleural effusions. These were thought secondary to her chest trauma. She was managed in the hospital with a chest tube. Pneumothorax resolved and chest tube was removed without complications. Status at Discharge Functional status at discharge: independent ambulation Overall status at discharge: patient is back to baseline Time Spent with Patient Time attestation: Total time spent providing and/or coordinating discharge services: Time spent: Greater than 30 minutes Exam Narrative: Exam Narrative: She is alert and appears in no distress. Breathing is unlabored. Respirations are clear to auscultation. She has no wheezing rales or rhonchi. Cardiovascular: S1, S2, regular rate and rhythm. No murmur gallop or rub. Abdomen: Bowel sounds active. Abdomen is soft without tenderness or mass. Still quite tender over her right lateral ribs and lower sternum. Const: Vital Signs, click to edit/add: Vital Signs - 24 hr 06/23/22 11:00 06/23/22 16:20 06/23/22 20:00 Temperature 98.8 F 98.2 F 98 F Pulse Rate [Right Pulse Oximeter] 88 76 70 Respiratory Rate 20 18 18 Blood Pressure [Ri ght Arm] 141/76 H 132/76 142/87 H Pulse Oximetry 90 94 94 Oxygen Delivery Me thod Room Air Room Air Room Air 06/23/22 22:25 06/23/22 23:00 06/24/22 03:00 Temperature 98 F 98.1 F Pulse Rate [Right Pulse Oximeter] 82 82 84 Respiratory Rate 18 18 18 Blood Pressure [Ri ght Arm] 118/74 133/82 Pulse Oximetry 92 90 Oxygen Delivery Me thod Room Air Room Air Documenting provider has reviewed patient's vital signs: yes DS: Data Data Completed and Pending Labs on day of discharge: Labs from last 24 hours 06/24/22 06:02 WBC 6.21 RBC 4.00 Hgb 10.5 L Hct 32.4 L MCV 81 MCH 26 MCHC 32 RDW Coeff of Keira 18.5 H Plt Count 307 Neut % (Auto) 45.4 Lymph % (Auto) 32.9 Hardeman % (Auto) 12.7 H Eos % (Auto) 7.9 H Baso % (Auto) 0.8 Neut # (Auto) 2.82 Lymph # (Auto) 2.04 Hardeman # (Auto) 0.80 Eos # (Auto) 0.50 Baso # (Auto) 0.05 Abs Immat Gran (auto) 0.02 Discharge Plan Discharge Disposition: Home, Self-Care Date of Admission: 06/22/22 18:38 Primary Care Provider: Arleen Joya Condition: Improved Anticipated Discharge Date/Time: 06/24/22 10:00 Discharge Medications: New ibuprofen 200 mg tablet 400 mg PO TID PRNQty: 100 0RF Continued fluticasone propionate 50 mcg/actuation spray,suspension 2 spray intranasal DAILY Label Comments: Inhale 2 Sprays into both nostrils once daily. gabapentin 300 mg Capsule 300 mg PO TID PRN (Reason: As Needed For Fever Or Pain) Qty: 20 0RF hydroxyzine pamoate 25 mg Capsule 25 mg PO Q4H PRNQty: 20 0RF Rx Instructions: PRN pain acetaminophen 325 mg Tablet 650 mg PO QID PRN ondansetron 4 mg tablet,disintegrating 4 mg PO Q8H PRN (Reason: nausea and vomiting) Rx Instructions: PRN nausea or vomiting Discontinued oxycodone 5 mg Tablet 2.5 mg PO Q4H PRN (Reason: Pain) Qty: 14 0RF oxycodone 5 mg tablet 2.5 mg PO Q4H PRN (Reason: pain) Qty: 20 0RF Discharge Orders: Discharge Order (Routine); Ordered 06/24/22 Ordered By: Odell Brown Activity Level: Activity as Tolerated Discharge Diet: Regular Follow Up Appointments: Arleen Joya DO [Primary Care Provider] - (1-2 weeks) [facility]
--- NOTE | 2022-06-24 11:39 | PC.NURSE ---
Pt UAL in room this morning. Chest tube clamped. Portable CXR completed. Dr. Marie in to remove chest tube. Pt and her dtr Ciera verbalized understanding of d/c instructions, home meds, pain management plan, new prescriptions, f/up appt with Dr. Joya and sx to report urgently to physician. Pt discharged via w/c with her personal belongings @ 11:00 am. [facility].
== END 2022-06-24 11:00 | disposition home or self-care (01) | DRG 200 ==
PROVIDERS: Admitting Provider Family Medicine; PCP Family Medicine; Visit Provider Family Medicine
DX: S27.0XXA Traumatic pneumothorax, initial encounter (principal); S22.41XA Multiple fractures of ribs, right side, initial encounter for closed fracture; S22.20XA Unspecified fracture of sternum, initial encounter for closed fracture; J91.8 Pleural effusion in other conditions classified elsewhere; I10 Essential (primary) hypertension; G47.33 Obstructive sleep apnea (adult) (pediatric); E21.3 Hyperparathyroidism, unspecified; W11.XXXA Fall on and from ladder, initial encounter
CPT/HCPCS: 32551; 36415; 71045; 80048; 83880; 85025; 86140; 87635; A9270; J1650; J1885; J2060

== ENCOUNTER 2022-09-25 10:54 | Outpatient (RCR) | payer MEDICARE, OTHER, SELFPAY | END 2023-05-09 23:59 | disposition home or self-care (01) | PROVIDERS: PCP Family Medicine; Visit Provider Family Medicine | DX: R42 Dizziness and giddiness (principal); Z51.89 Encounter for other specified aftercare | CPT/HCPCS: 97110; 97162 ==

== ENCOUNTER 2023-11-20 13:05 | Outpatient (CLI) | payer MEDICARE, OTHER, SELFPAY ==
[2023-11-20] MEDS: BRIMONIDINE TARTRATE 0.2% OPHTH 1 DROP EYE-LEFT ×2 (13:15→13:47)
[2023-11-20] MEDS: TETRACAINE 0.5% OPHTH 1 DROP EYE-LEFT ×3 (13:15→13:40)
[2023-11-20 13:16] VITALS: BP 156/82; PULSE 71; RESP 16; O2SAT 97
--- NOTE | 2023-11-20 14:27 | W.PM.OPTPROC ---
Procedure Note Date of procedure: 11/20/23 Will [facility] bill your pro fee for this procedure?: Yes Procedure Description: SURGEON: Anika Jaeger MD PREOPERATIVE DIAGNOSIS: Posterior capsular opacity, left eye POSTOPERATIVE DIAGNOSIS: Posterior capsular opacity, left eye PROCEDURE: YAG laser capsulotomy, left eye ANESTHESIA: Topical. ESTIMATED BLOOD LOSS: None PATHOLOGY SPECIMEN: None COMPLICATIONS: None INDICATIONS: See consult note for details. The risks, benefits and alternatives of the procedure were explained to the patient, who elected to proceed and signed informed consent to do so. PROCEDURE: The patient was brought to the pre-holding area where the left eye was identified as the operative eye. I placed my initials above this eye. The patient received 2 sets of 1 drop of 0.5% tetracaine and 1 drop of 1% tropicamide. They also received 1 drop of 0.2% brimonidine. They received 1 drop of 0.5% tetracaine immediately prior to bringing them back for the procedure. The patient was then brought to the procedure room where the left eye was again identified as the operative eye. A YAG Sea capsulotomy lens was placed on the eye. The laser was administered using a total number of 13 shots with an energy of 2.4 mJ per shot for a total energy of 31 mJ. The patient tolerated the procedure well. DISPOSITION: The patient was taken back to the pre-holding area and given 1 drop of 0.2% brimonidine in the left eye. They were discharged to home in stable condition. The patient was instructed to call me or go to the emergency department with any sudden change, including dramatic loss of vision, severe pain in the eye or eyebrow region, nausea, or vomiting. The patient was instructed to use the 0.2% brimonidine 1 drop 2 times a day in the left eye for 1 week. The patient will follow up in the clinic in 1-2 weeks
== END 2023-11-20 13:50 | disposition home or self-care (01) ==
PROVIDERS: PCP Family Medicine; Visit Provider Ophthalmology
DX: H26.9 Unspecified cataract (principal)
CPT/HCPCS: 66821; A9270

== ENCOUNTER 2024-06-04 10:57 | Outpatient (CLI) | payer MEDICARE, OTHER, SELFPAY ==
--- NOTE | 2024-06-04 11:15 | CRLHL7_ITS ---
For Patients: As a result of the 21st Century Cures Act, medical imaging exams and procedure reports are released immediately into your electronic medical record. You may view this report before your referring provider. If you have questions, please contact your health care provider. INDICATION: Difficulty swallowing dysphagia TECHNIQUE: Modified barium swallow. Fluoroscopic time 59 seconds. FINDINGS/IMPRESSION: Anatomical structures are normal. Swallowing mechanism appears within normal limits. No episodes of penetration or aspiration. No significant findings. Dictated by Franklin Cash MD @ 06/05/2024 11:59:55 AM (Electronically Signed)
== END 2024-06-04 10:58 | disposition home or self-care (01) ==
LOC: RAD 10:58
PROVIDERS: PCP Family Medicine; Visit Provider Family Medicine
DX: R13.10 Dysphagia, unspecified (principal)
CPT/HCPCS: 74230; 92611

== ENCOUNTER 2024-09-03 09:02 | Outpatient (CLI) | payer MEDICARE, OTHER, SELFPAY ==
--- NOTE | 2024-09-03 09:15 | CRLHL7_ITS ---
For Patients: As a result of the Century Cures Act, medical imaging exams and procedure reports are released immediately into your electronic medical record. You may view this report before your referring provider. If you have questions, please contact your health care provider. Technique: Double-contrast esophagram performed after the uneventful administration of effervescent crystals and thick barium followed by thin barium. Fluoroscopy time 1 minute 38 seconds. Indication: Dysphagia Comparison: Barium swallow study 06/04/2024 Findings: Esophagus: There is a small sliding hiatal hernia is present measuring 2.4 cm. Normal esophageal motility. No mucosal irregularity. Gastroesophageal reflux: Mild spontaneous reflux noted. Impression: Small hiatal hernia and mild spontaneous reflux. Remainder unremarkable. Dictated by Franklin Cash MD @ 09/04/2024 1:23:22 PM (Electronically Signed)
== END 2024-09-03 09:03 | disposition home or self-care (01) ==
LOC: RAD 09:02
PROVIDERS: PCP Family Medicine; Visit Provider Internal Medicine Gastroenterology
DX: R13.10 Dysphagia, unspecified (principal); K44.9 Diaphragmatic hernia without obstruction or gangrene; K21.9 Gastro-esophageal reflux disease without esophagitis
CPT/HCPCS: 74246